=== PATIENT | male | born 1935 | race Caucasian/White ===

== ENCOUNTER 2019-04-25 20:50 | Inpatient (IN) | payer MEDICARE, BC ==
[2019-04-25] MEDS ORDERED: Atropine Sulfate 1 mg/10 ml Syringe ONE (20:57)
[2019-04-25 21:26] LABS: #Eosinphils 0.1 thou/uL (0.0-0.7); #Lymphocytes 1.1 thou/uL (1.20-3.40); #Monocytes 1.1 thou/uL (0.11-0.59); #Neutrophils 6.5 thou/uL (1.40-6.50); %Basophils 0.2 % (0.0-1.0); %Eosinophils 1.6 % (0.0-10.0); %Lymphocytes 12.4 % (21.0-51.0); %Monocytes 12.4 % (0.0-10.0); %Neutrophils 73.4 % (42.0-75.0); Hemoglobin 14.4 g/dL (14.0-18.0); Mean Corpuscular HGB CONC 32.3 g/dL (32.0-36.0); Mean Corpuscular Hemoglobin 29.6 pg (27.0-31.0); Mean Corpuscular Volume 91.8 fL (78.0-98.0); Mean Platelet Volume 7.8 fL (7.4-10.4); Platelet Count 239 thou/uL (130-400); RBC Distribution Width 17.8 % (11.5-14.5); Red Blood Cell (RBC) Count 4.86 mill/uL (4.70-6.10); White Blood Cell (WBC) Count 8.9 thou/uL (4.8-10.8)
[2019-04-25 21:31] LABS: INR-International Normal Ratio 1.1; PTT 28.3 SEC (22.9-36.1); Prothrombin Time 13.8 SEC (12.0-14.7)
[2019-04-25 21:52] LABS: ALT (SGPT) 50 U/L (8-55); AST (SGOT) 36 U/L (5-34); Albumin 4.1 g/dL (3.4-4.8); Alkaline Phosphatase 70 U/L (40-150); Anion Gap 11 mmol/L (10-20); BUN (Urea Nitrogen) 81 mg/dL (8.4-25.7); Bilirubin, Total 0.9 mg/dL (0.2-1.2); Calc. Creatinine Clearance 0 mL/min (70-130); Calcium 9.4 mg/dL (7.8-10.44); Carbon Dioxide 34 mmol/L (23-31); Chloride 89 mmol/L (98-107); Estimated GFR-MDRD 16; Globulin 3.4 g/dL (2.4-3.5); Glucose 144 mg/dL (83-110); Protein, Total 7.5 g/dL (5.8-8.1); Sodium 130 mmol/L (136-145)
--- NOTE | 2019-04-25 21:52 | RAD ---
CHEST 1 VIEW: Date: 04/25/19 HISTORY: Chest pain, bradycardia. FINDINGS: Monitor leads overlie the chest. Heart size is within normal limits. Postop midline sternotomy change s. No confluent pneumonia, overt edema, or pleural effusion. IMPRESSION: Postop midline sternotomy. Borderline heart size. No significant acute intrathoracic disease. POS: RRE
[2019-04-25] MEDS ORDERED: Enoxaparin Sodium 100 MG/ML SYRINGE ONE (22:07)
[2019-04-25 22:11] LABS: CKMB 2.4 ng/mL (0-6.6)
[2019-04-25] MEDS ORDERED: Enoxaparin Sodium 100 MG/ML SYRINGE SC SCH (22:15)
[2019-04-25] MEDS ORDERED: Ondansetron PF 4 MG/2 ML Vial IVP PRN (23:15)
[2019-04-25] MEDS ORDERED: Ondansetron ODT 4 MG TAB PO PRN (23:15)
[2019-04-26 01:00] LABS: Troponin I 0.074 ng/mL (< 0.028)
[2019-04-26] MEDS ORDERED: Dextrose 50% Abboject 50 ML SYRINGE SLOW IVP PRN (02:30)
[2019-04-26] MEDS ORDERED: Dextrose 5% in Water 1,000 ML IV PRN (02:30)
--- NOTE | 2019-04-26 03:14 | HP ---
PRIMARY CARE DOCTOR: Amanuel Early MD. CODE STATUS: DNR/DNI. TIME OF EVALUATION: 10:47 p.m. CHIEF COMPLAINT: Bradycardia. HISTORY OF PRESENT ILLNESS: This is an 84-year-old male patient with past medical history of CHF, type 2 diabetes, kidney failure, coronary artery disease, status post CABG, came to the hospital after having an episode of very low heart rate with heart rate in the 30s. He has been examined today by a home health staff. The patient has been in the ER, received some atropine. He has been asymptomatic, but the heart rate has been down in the 30s multiple times. Dr. Plasencia was called who will see the patient in the morning. The patient has no significant symptoms. Of note, the patient was on carvedilol and also amiodarone, can be a combination of the two also, he had not been taking these medications since Wednesday due to he did not have refills. REVIEW OF SYSTEMS: CONSTITUTIONAL: No fever, chills, or generalized weakness. RESPIRATORY: No cough, sputum production, or shortness of breath. CARDIOVASCULAR: The patient had no chest pain, but he has bradycardia. GASTROINTESTINAL: No nausea, vomiting, diarrhea, or abdominal pain. SPECIAL EQUIPMENT TECHNICIAN: No dizziness, headache, or feeling lightheaded. GENITOURINARY: No burning on urination. EXTREMITIES: No leg swelling. All other systems were reviewed and negative except for the findings mentioned above. PAST MEDICAL HISTORY: As mentioned in the HPI. PAST SURGICAL HISTORY: The patient has a history of CABG. PSYCHIATRIC HISTORY: No previous psych history. SOCIAL HISTORY: No alcohol. No drugs. No smoking history. FAMILY HISTORY: Reviewed, noncontributory to current presentation. KNOWN ALLERGIES: No known drug allergies. REPORTED MEDICATIONS: 1. Furosemide. 2. Aspirin. 3. Metolazone. 4. Spironolactone. 5. Ranitidine. 6. Amiodarone. 7. Coenzyme Q10. 8. Atorvastatin. 9. Carvedilol. 10. Glimepiride. PHYSICAL EXAMINATION: VITAL SIGNS: On presentation, blood pressure 157/60 with heart rate 41, respiratory rate was 16, temperature 97.4, pain 2/10, oxygen saturation was 99% on room air. GENERAL APPEARANCE: The patient is alert, oriented, not in acute distress. HEENT: Eyes; normal conjunctivae. Moist oral mucosa. Anicteric. No JVD. RESPIRATORY: Bilateral air entry. No rales. No wheezes. Symmetric expansion. CARDIOVASCULAR: The patient has bradycardia with irregular rhythm. No murmurs. No gallop. No edema. ABDOMEN: Soft. Normal bowel sounds. MUSCULOSKELETAL: Baseline range of motion and strength. SKIN: Warm, intact. No pallor. No rash. No redness. Peripheral pulses are present. Capillary refill seems to intact. NEUROLOGIC: No evidence of any new focal weakness. Cranial nerves seem to be intact. PSYCH: The patient is in good mood. No anxiety. Optimal judgment. DIAGNOSTIC DATA: EKG was reviewed. The patient has wide QRS rhythm, LBBB, ventricular rate of 44, QRS 184, QT corrected 453. Chest x-ray was reviewed. The patient has postop midline sternotomy, borderline heart size. No significant acute intrathoracic disease. LABORATORY DATA: Reviewed. The patient has white count 8.9, hemoglobin 14.4, MCV 91.8, platelet count 239. Coagulation; PT 13.8, INR 1.1, PTT 28.3. Chemistry; sodium 130, potassium 4.0, chloride 89, carbon dioxide 34, anion gap 11, BUN 81, creatinine 3.58, GFR 16, glucose 144, calcium 9.4, total bilirubin 0.9. LFTs were negative. Troponin initial was 0.060, second one 0.074. ASSESSMENT AND PLAN: The patient will be placed in the hospital with following medical problems: 1. Bradycardia, with no significant symptoms. Heart rate has dropped in the 30s multiple times. Dr. Plasencia is following, he has been called and he will see the patient in the morning, we will follow recommendations. We will hold amiodarone and beta-blockers for now until further recommendations from Cardiology. Reconcile rest of home medications. 2. Hyponatremia, sodium 130, this is mild, no need for any acute intervention. We will monitor, we will treat accordingly. 3. Metabolic alkalosis with CO2 of 34. The patient might be on the dry side. He was in 2 diuretics furosemide and metolazone, we will reconcile home medications, we will adjust as needed. 4. The patient has a history of chronic kidney disease. Today, creatinine is 3.58, we do not know if this is worsened from baseline. We will have the records to compare. We will monitor kidney function in the morning. The patient seems to be on the right side. 5. Also has underlying congestive heart failure, so we need to find the right balance fluids, so we prevent patient going to congestive heart failure exacerbation complications. 6. Uncontrolled diabetes. The patient will be placed in the hospital on sliding scale. We will reconcile home medications. 7. Positive troponins. The first one is 0.060, the second one is 0.074. This is mild, could be secondary to [id number] myocardial infarction type 2 due to arrhythmias, we will trend troponins, we will treat accordingly. Cardiology has been consulted. 8. Deep venous thrombosis prophylaxis. 9. We will request records from [facility], so we avoid doing unnecessary tests. Job ID: [id number]
[2019-04-26] MEDS: Acetaminophen 325 MG TAB PO PRN ×2 (03:44→14:31)
[2019-04-26 04:56] LABS: #Eosinphils 0.2 thou/uL (0.0-0.7); #Lymphocytes 1.5 thou/uL (1.20-3.40); #Monocytes 1.2 thou/uL (0.11-0.59); #Neutrophils 6.9 thou/uL (1.40-6.50); %Basophils 0.3 % (0.0-1.0); %Eosinophils 1.5 % (0.0-10.0); %Monocytes 12.6 % (0.0-10.0); %Neutrophils 70.6 % (42.0-75.0); Hemoglobin 14.4 g/dL (14.0-18.0); Mean Corpuscular HGB CONC 32.5 g/dL (32.0-36.0); Mean Corpuscular Hemoglobin 29.7 pg (27.0-31.0); Mean Corpuscular Volume 91.4 fL (78.0-98.0); Mean Platelet Volume 7.6 fL (7.4-10.4); Platelet Count 241 thou/uL (130-400); RBC Distribution Width 17.7 % (11.5-14.5); Red Blood Cell (RBC) Count 4.86 mill/uL (4.70-6.10); White Blood Cell (WBC) Count 9.8 thou/uL (4.8-10.8)
[2019-04-26 05:17] LABS: Anion Gap 14 mmol/L (10-20); BUN (Urea Nitrogen) 75 mg/dL (8.4-25.7); Calc. Creatinine Clearance 20 mL/min (70-130); Calcium 9.3 mg/dL (7.8-10.44); Carbon Dioxide 31 mmol/L (23-31); Chloride 90 mmol/L (98-107); Estimated GFR-MDRD 18; Glucose 73 mg/dL (83-110); Potassium 3.8 mmol/L (3.5-5.1); Sodium 131 mmol/L (136-145)
[2019-04-26] MEDS ORDERED: Enoxaparin Sodium 30 MG/0.3 ML SYRINGE SC SCH (09:00)
[2019-04-26] MEDS: Spironolactone 25 MG TAB PO SCH (10:44)
[2019-04-26] MEDS: Ubidecarenone 50 MG CAP PO SCH (10:44)
[2019-04-26] MEDS: Atorvastatin Calcium 40 MG TAB PO SCH (10:44)
[2019-04-26] MEDS: Famotidine 20 MG TAB PO SCH (10:44)
[2019-04-26] MEDS: Metolazone 2.5 MG TAB PO SCH (10:45)
[2019-04-26] MEDS: Aspirin 81 mg Enteric Coated Tablet PO SCH (10:45)
[2019-04-26] MEDS: Furosemide 40 MG TAB PO SCH (10:46)
--- NOTE | 2019-04-26 14:13 | CON ---
DATE OF CONSULTATION: 04/26/2019 REASON FOR CONSULTATION: Bradycardia. HISTORY OF PRESENT ILLNESS: Mr. Colbert is a pleasant 84-year-old white gentleman, who comes to the hospital after he was found to have heart rates in the 30s. He was at home being evaluated by home health and he was found to have multiple episodes of heart rate down to the 30s. He was asked to go to the ER, where he was seen and evaluated and was found to have heart rate in the 30s to 40s, given some atropine and admitted for further evaluation. Mr. Colbert is completely asymptomatic. Denies any chest pain, tightness, or pressure. No shortness of breath. No lightheadedness. No syncope or presyncope. He has been on amiodarone and carvedilol. He has a history of atrial fibrillation in the past, followed by Dr. Briseno at [facility]. No other issues for now. He had his amiodarone and carvedilol stopped last night and his heart rate has remained in the 40s. PAST MEDICAL HISTORY: 1. 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 2. Type 2 diabetes. 3. Renal insufficiency. 4. Coronary artery disease, status post CABG. 5. Possible history of atrial fibrillation, unknown at this time, but the family admits to having this before. PAST SURGICAL HISTORY: CABG. SOCIAL HISTORY: No alcohol, tobacco, or drugs. FAMILY HISTORY: Noncontributory. OUTPATIENT MEDICATIONS: Include: 1. Aldactone 50 mg a day. 2. . 3. Coreg 3.125 b.i.d. 4. Amiodarone 400 mg a day. 5. CoQ10. 6. Ranitidine. 7. Atorvastatin 40 mg a day. 8. Metolazone 2.5 mg a day. 9. Furosemide 40 mg a day. 10. Aspirin 81 a day. ALLERGIES: NO KNOWN DRUG ALLERGIES. REVIEW OF SYSTEMS: Recent falls, otherwise negative unless stated in history of present illness. PHYSICAL EXAMINATION: VITAL SIGNS: Temperature 96.6, pulse 40, respiratory rate 16, saturating 99% on room air, and blood pressure 139/61. GENERAL: Awake, alert, and oriented x3. No distress. HEENT: Normocephalic and atraumatic. NECK: Supple. LUNGS: Clear. CARDIOVASCULAR: S1 and S2. No S3 or S4. No murmurs. ABDOMEN: Soft. Positive bowel sounds. EXTREMITIES: No edema. SKIN: Warm and dry. LABORATORY DATA: Laboratory work was reviewed. CBC is unremarkable. Coags are normal. Chemistries unremarkable except for a BUN of 75, creatinine 3.31, GFR of 18. Troponin is indeterminate range of 0.06, 0.07, and 0.09. Sodium was 131. EKG was reviewed, sinus bradycardia. ASSESSMENT: 1. Sinus bradycardia. Asymptomatic. 2. History of atrial fibrillation. 3. History of coronary artery disease. 4. History of congestive heart failure, unclear which type. 5. Chronic kidney disease, currently at stage 4, unknown chronicity. PLAN: 1. Continue to hold amiodarone and Coreg. 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 Currently, he is quite stable off the amiodarone and carvedilol. 2. We will ask for records from [facility] as he was recently admitted there. 3. We will get an echocardiogram to assess LV function, valvular structures. 4. Further recommendations per further evaluation with echo and review of records. Thank you for letting us to participate in the care of your patient. We will follow. Job ID: [id number]
--- NOTE | 2019-04-26 17:12 | CON ---
DATE OF CONSULTATION: 04/26/2019 SERVICE: Pulmonary Medicine. REASON FOR CONSULTATION: [facility] patient. HISTORY OF PRESENT ILLNESS: The patient is an 84-year-old white male. He was in his usual state of health when home health came to check on him. He was discovered to be bradycardic. He was completely asymptomatic and denied any chest discomfort, shortness of breath, palpitations, nausea, or vomiting. He does not have any known history of bradyarrhythmias. He was told to come to the Emergency Department. Because there were no telemetry beds available, he was tucked in the [facility]. He denies any current fevers, chills, cough, or sputum production. He is on beta blockers in the outpatient setting. These include amiodarone and Coreg. Cardiology consultation has been placed. Currently, the patient remains without symptoms. PAST MEDICAL HISTORY: 1. Type 2 diabetes mellitus. 2. Dyslipidemia. 3. Hypertension. 4. Chronic systolic and diastolic heart failure. 5. Gastroesophageal reflux disease. 6. Chronic kidney disease, stage IV. PAST SURGICAL HISTORY: Coronary artery bypass graft surgery. SOCIAL HISTORY: Negative for alcohol, tobacco, or illicit drug use. He has no exposure to chemicals, dust, asbestos, or tuberculosis. He has a [id number] history of smoking, but quit over 10 years ago. FAMILY HISTORY: Noncontributory. ALLERGIES: NO KNOWN DRUG ALLERGIES. MEDICATIONS: List of the patient's inpatient medications was reviewed. No specific updates were made at this time. REVIEW OF SYSTEMS: General; head, ears, eyes, nose, throat; cardiovascular; respiratory; GI; ; musculoskeletal; neurologic; and skin are negative except as mentioned is the HPI. PHYSICAL EXAMINATION: VITAL SIGNS: Afebrile, pulse 40, blood pressure 139/61, respirations 16, and saturation 99% on room air. GENERAL: The patient is awake and alert, in no apparent distress. LUNGS: Decent air entry. There is no prolonged expiratory phase or wheezing present. HEART: Normal rate and regular. ABDOMEN: Soft, nontender, and nondistended. Bowel sounds are positive. MUSCULOSKELETAL: No cyanosis or clubbing. There is trace to 1+ pitting in the bilateral lower extremities. NEUROLOGIC: Grossly nonfocal. LABORATORY DATA: CBC is unremarkable. INR 1.1. Creatinine 3.31 and gently downtrending, BUN 75 also improving. Basic metabolic profile is otherwise unremarkable. Troponin is gently up trending to 0.09. Liver function studies were previously unremarkable except for marginally elevated AST at 36. IMAGING STUDIES: Chest x-ray demonstrates postop midline sternotomy. No acute cardiopulmonary abnormality is present. ASSESSMENT: 1. Chronic kidney disease, stage IV. 2. Bradycardia, new onset, without any symptoms. 3. Heart failure, type not specified. DISCUSSION AND PLAN: The patient is stable for transition out of the ICU to the telemetry unit. We will continue to monitor closely while we await records from [facility]. When the patient lands on the floor, he will have no further requirements for inpatient Pulmonary or Critical Care opinion, and I will sign off. Please call with additional questions or concerns through time. 70 minutes have been devoted to this patient in various activities. I personally reviewed all imaging studies and laboratory data noted within this document. For fifty percent of this time, I was interacting with the patient at the bedside or coordinating care with the care team. For the remainder of the time I was immediately available to the patient in the hospital unit. Job ID: [id number] [email or web address]
--- NOTE | 2019-04-26 19:11 | PRG ---
DATE OF SERVICE: 04/26/2019 SUBJECTIVE: The patient denies any new complaints at this time. He continues to have generalized weakness. No syncope reported. He denies any chest pain, palpitations, or shortness of breath. No fever or chills reported. CURRENT MEDICATIONS: Current medications were reviewed. The patient is currently on: 1. Aspirin. 2. Lipitor. 3. Pepcid. 4. Lasix. 5. Metolazone. 6. Aldactone. 7. Coenzyme Q10. REVIEW OF SYSTEMS: The patient denies any fever, chills, or focal neurologic deficits. All other review of systems was reviewed and were found negative. Telemetry monitoring, by my review, showed sinus bradycardia. OBJECTIVE: VITAL SIGNS: Temperature 97.7, respirations of 15, pulse rate of 40 , blood pressure of 153/65, O2 saturation 98% on room air. Weight of 190 pounds. GENERAL: An 84-year-old male with generalized weakness. Denies any pain. LUNGS: Clear to auscultation bilaterally. No wheezing, rales, or rhonchi. Lungs were symmetrical. No accessory muscle use. HEART: S1 and S2 present. Bradycardic. No heaves or pulsation. 2/6 systolic murmur over the mitral area. ABDOMEN: Soft and nontender. Bowel sounds present. EXTREMITIES: No edema or calf tenderness. NEUROLOGIC: Grossly nonfocal. Moves all 4 extremities. PSYCHIATRIC: Alert, awake, and oriented x3. Normal affect. LABORATORY FINDINGS: WBC 9.8, hemoglobin 14.4, hematocrit 44.4, and platelets 241. PT/INR, PTT within normal range. Chemistry showed sodium 131, potassium 3.8, chloride 90, bicarb 31, BUN 75, and creatinine 3.31. Troponin 0.060. Chest x-ray, by my review, was negative for infiltrate. IMPRESSION: 1. Generalized weakness. 2. Sinus bradycardia, asymptomatic. 3. Hyponatremia. 4. History of congestive heart failure, ejection fraction unknown. 5. Diabetes mellitus type 2. 6. Elevated troponin, probably secondary to type 2 myocardial infarction due to demand ischemia. 7. Coronary artery disease, status post coronary artery bypass grafting. 8. Chronic kidney disease stage 4 vs ELPIDIO 9. History of atrial fibrillation. 10. Sacrococcygeal area Pressure Ulcer. Stage II (present on admission) PLAN: Carvedilol and amiodarone are currently on hold due to bradycardia. We will continue telemetry monitoring. We will continue other home medications as discussed above. Recheck labs in a.m. Continue sliding scale. We will await records from [facility]. Code status was clarified. The patient is requesting no intubation. He still wants CPR and shocks if needed. Code status will be changed in the computer. Plan of care was discussed with the patient and the family in detail, they stated understanding. Job ID: [id number] [facility]
[2019-04-26] MEDS ORDERED: Prevnar 13-Val Conj/PF 0.5 ML SYRINGE IM ONE (21:00)
[2019-04-26] MEDS: Senokot S 8.6-50 MG TAB PO SCH (21:09)
[2019-04-27] MEDS: Acetaminophen 325 MG TAB PO PRN ×2 (01:54→19:59)
[2019-04-27 04:59] LABS: Anion Gap 13 mmol/L (10-20); BUN (Urea Nitrogen) 69 mg/dL (8.4-25.7); BUN/Creatinine Ratio 22.26; Calc. Creatinine Clearance 22 mL/min (70-130); Calcium 9.3 mg/dL (7.8-10.44); Carbon Dioxide 30 mmol/L (23-31); Chloride 88 mmol/L (98-107); Estimated GFR-MDRD 19; Glucose 168 mg/dL (83-110); Phosphorus 4.1 mg/dL (2.3-4.7); Potassium 3.7 mmol/L (3.5-5.1); Sodium 127 mmol/L (136-145)
[2019-04-27] MEDS: Metolazone 2.5 MG TAB PO SCH (10:20)
[2019-04-27] MEDS: Ubidecarenone 50 MG CAP PO SCH (10:20)
[2019-04-27] MEDS: Aspirin 81 mg Enteric Coated Tablet PO SCH (10:20)
[2019-04-27] MEDS: Furosemide 40 MG TAB PO SCH (10:20)
[2019-04-27] MEDS: Spironolactone 25 MG TAB PO SCH (10:20)
[2019-04-27] MEDS: Polyethylene Glycol 3350 17 GM Packet PO SCH (10:21)
[2019-04-27] MEDS: Famotidine 20 MG TAB PO SCH (10:21)
[2019-04-27] MEDS: Senokot S 8.6-50 MG TAB PO SCH ×2 (10:21→19:59)
[2019-04-27] MEDS: Atorvastatin Calcium 40 MG TAB PO SCH ×2 (11:46→19:59)
--- NOTE | 2019-04-27 12:45 | PRG ---
DATE OF SERVICE: 04/27/2019 SUBJECTIVE: Mr. Colbert is evaluated today. He has no new complaints. OBJECTIVE: VITAL SIGNS: He is afebrile. Heart rate in the 40s, blood pressure 129/66, respiratory rate is 19. LUNGS: Clear. HEART: Regular rhythm. ABDOMEN: Soft and nontender. EXTREMITIES: Without edema. NEURO: Nonfocal. LABORATORY DATA: White count is 9.8 yesterday. There is no CBC today. Sodium today is 127, it was 131 yesterday. Potassium 3.7, chloride 88, BUN 69, and creatinine 3.1. Intake and output -820. IMPRESSION: 1. Bradycardia. 2. Chronic kidney disease with acute decompensation that has improved in spite of negative fluid balance. 3. Mild hyponatremia. 4. Diabetes. 5. Relative bradycardia. PLAN: We will continue supportive care. He needs to remain in a monitored bed. There are no telemetry beds at this time. We will continue to have his amiodarone and Coreg on hold. He has a history of atrial arrhythmias, but he has not had any since he has been admitted. It is noted that he may require pacemaker if he does. An echocardiogram is pending. We will continue to follow the other physicians. Job ID: [id number] [facility]
--- NOTE | 2019-04-27 16:24 | PQF ---
CLINICAL DOCUMENTATION IMPROVEMENT CLARIFICATION FORM: ICD-10 Updated PLEASE DO AN ADDENDUM TO THE PROGRESS NOTE WITH ANY DOCUMENTATION UPDATES OR ADDITIONS AND CARRY THROUGH TO DC SUMMARY. THANK YOU. DATE: 04/27/2019 ATTN: Dr. Culver Please exercise your independent, professional judgment in responding to the clarification form. Clinical indicators are provided on the bottom of this form for your review Please check appropriate box(s): [ ] I (concur) with the Wound Care findings as stated below. [ ] Pressure Ulcer: (Stage I: Erythema; Stage II: Partial thickness; Stage III : Full thickness; Stage IV: Necrosis to muscle/bone) [ ] Location: POA: [ ] Yes [ ] No[ ] Unable to determine Stage (I to IV): __(Left__Right__Bilateral__N/A__) [ ] Location: POA: [ ] Yes [ ] No[ ] Unable to determine Stage (I to IV): __(Left__Right__Bilateral__N/A_) [ ] No pressure ulcer diagnosis [ ] Deep tissue injury [ ] Other diagnosis [ ] Unable to determine In addition, please specify: Present on Admission (POA): [ ] Yes [ ] No [ ] Unable to determine For continuity of documentation, please document condition throughout progress notes and discharge summary. Thank You. CLINICAL INDICATORS - SIGNS / SYMPTOMS / LABS 04/26 WOUND CARE ASSESSMENT: Sacrococcygeal area Pressure Ulcer. Stage II RISKS: H&P 04/25: 84 yo, with PMH CHF, type 2 diabetes. History of CKD. TREATMENT: 04/26 ORDER FOR WOUND CARE EVAL. 04/26 WC ASSESSMENT: Follow Nursing Wound Care Protocol keep area clean and dry, apply barrier cream , cover with Pre-ulcer skin changes limited to persistent focal edema (Stage 1) Abrasion, blister, partial thickness skin loss involving epidermis and/or dermis (Stage 2) Full thickness skin loss involving damage or necrosis of SQ tissue. (Stage 3) Necrosis of soft tissue through to underlying muscle, tendon, or bone. (Stage 4) Purple or maroon discolored skin or blood filled blister Thank you, Angelica (This form is maintained as a part of the permanent medical record) 2014 [employer]. All Rights Reserved Angelica Roman RN, BSN [email or web address] Office: [phone] [facility]
[2019-04-27] MEDS: HumaLOG 300 UNITS/3 ML VIAL SC PRN (17:01)
[2019-04-27 18:12] LABS: Bilirubin Negative (Negative); Blood, Urine Negative (Negative); Clarity CLEAR (Clear); Glucose, Urine (Dipstick) 100 mg/dL (Negative); Leukocyte Negative (Negative); Nitrite Negative (Negative); Protein, Urine (Dipstick) Trace mg/dL (Neg-Trace); Specific Gravity, Urine 1.013 (1.002-1.036)
--- NOTE | 2019-04-27 18:40 | PDOC.CTH ---
Cardiology Progress Note - Subjective No new issues. - Objective Vital Signs Temp Pulse Pulse BP BP Pulse Ox Pulse Ox 04/27/19 15:20 97.9 F 04/27/19 11:15 97.7 F 04/27/19 10:43 44 L 45 L 122/65 129/66 100 04/27/19 10:34 44 L 45 L 122/65 129/66 100 04/27/19 09:18 100 04/27/19 07:44 97.4 F L Pulse Ox 04/27/19 15:20 04/27/19 11:15 04/27/19 10:43 99 04/27/19 10:34 98 04/27/19 09:18 04/27/19 07:44 Admit Weight 190 lb 11.2 oz Weight 190 lb 11.2 oz 04/26/19 04/27/19 04/28/19 06:59 06:59 06:59 Intake Total 1680 960 Output Total 2500 975 Balance -820 -15 - Physical Examination General/Neuro: alert & oriented x3, NAD Neck: no JVD present Lungs: CTA, unlabored respirations Heart: RRR Abdomen: NT/ND Extremities: + edema B (1+) - Telemetry Telemetry Rhythm: S stacey. - Labs Result Diagrams: 04/26/19 04:50 04/27/19 04:20 Troponin/CKMB CK-MB (CK-2) 2.4 ng/mL (0-6.6) 04/25/19 21:18 Troponin I 0.090 ng/mL (< 0.028) H 04/26/19 04:50 - Assessment/Plan 1. Sinus bradycardia 2. Hyponatremia 3. Paroxysmal afib 4. 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 - He is asymptomatic and has chronotropoic competence as when he stands up his HR goes up to the upper 40's to low 50's. - Continue to monitor, may transfer to telemetry. - May need a PPM in the near future.
--- NOTE | 2019-04-27 19:18 | PDOC.PN ---
- Subjective Encounter Start Date: 04/27/19 Encounter Start Time: 08:30 Patient seen and examined for gen weakness/bradycardia. Feels the same. No CP/ SOB. No new complaints. No overnight events - Objective Resuscitation Status - Order Detail: 04/26/19 17:23 Resuscitation Status Routine Resuscitation Status: PRTL: Cardiac only Discussed with: Confirmed with patient/family Additional comments: No intubation MAR Reviewed: Yes Vital Signs & Weight: Vital Signs (12 hours) Temp Pulse Pulse BP BP Pulse Ox Pulse Ox 04/27/19 15:20 97.9 F 04/27/19 11:15 97.7 F 04/27/19 10:43 44 L 45 L 122/65 129/66 100 04/27/19 10:34 44 L 45 L 122/65 129/66 100 04/27/19 09:18 100 04/27/19 07:44 97.4 F L Pulse Ox 04/27/19 15:20 04/27/19 11:15 04/27/19 10:43 99 04/27/19 10:34 98 04/27/19 09:18 04/27/19 07:44 Weight Admit Weight 190 lb 11.2 oz Weight 190 lb 11.2 oz Most Recent Monitor Data Heart Rate from ECG 49 NIBP 103/55 NIBP BP-Mean 71 Respiration from ECG 19 SpO2 99 I&O: 04/26/19 04/27/19 04/28/19 06:59 06:59 06:59 Intake Total 1680 960 Output Total 2500 975 Balance -820 -15 Result Diagrams: 04/26/19 04:50 04/27/19 04:20 Additional Labs: Accuchecks 04/27/19 04/27/19 04/27/19 16:35 10:31 05:44 POC Glucose 242 H 186 H 148 H 04/26/19 20:20 POC Glucose 218 H EKG Reviewed by me: Yes (Tele SB) Phys Exam - Physical Examination Constitutional: NAD Respiratory: no wheezing, no rhonchi Cardiovascular: no rub bradycardic Gastrointestinal: soft, non-tender, positive bowel sounds Musculoskeletal: no edema Neurological: moves all 4 limbs Dx/Plan - Plan DVT proph w/SCDs IMPRESSION: 1. Generalized weakness. 2. Sinus bradycardia, asymptomatic. 3. Hyponatremia. 4. History of congestive heart failure, ejection fraction unknown. 5. Diabetes mellitus type 2. 6. Elevated troponin, probably secondary to type 2 myocardial infarction due to demand ischemia. 7. Coronary artery disease, status post coronary artery bypass grafting. 8. Chronic kidney disease stage 4 vs ELPIDIO 9. History of atrial fibrillation. 10. Sacrococcygeal area Pressure Ulcer. Stage II (present on admission) PLAN: Coreg and Amiodarone on hold Cont other meds including diuretics as below AM labs Await records from [facility] Cont sliding scale PT/OT Cont wound care Review of Systems - Medications/Allergies Allergies/Adverse Reactions: Allergies Allergy/AdvReac Type Severity Reaction Status Date / Time No Known Allergies Allergy Verified 04/26/19 01:57 Medications: Current Medications Acetaminophen (Tylenol) 650 mg PO Q4H PRN PRN Reason: Headache/Fever/Mild Pain (1-3) Last Admin: 04/27/19 01:54 Dose: 650 mg Aspirin (Ecotrin) 81 mg PO DAILY [facility] Last Admin: 04/27/19 10:20 Dose: 81 mg Atorvastatin Calcium (Lipitor) 40 mg PO [facility] Coenzyme Q10 (Coenzyme Q10) 100 mg PO DAILY [facility] Last Admin: 04/27/19 10:20 Dose: 100 mg Dextrose/Water (Dextrose 50%) 25 gm SLOW IVP PRN PRN PRN Reason: Hypoglycemia Famotidine (Pepcid) 20 mg PO DAILY [facility] Last Admin: 04/27/19 10:21 Dose: 20 mg Furosemide (Lasix) 40 mg PO DAILY [facility] Last Admin: 04/27/19 10:20 Dose: 40 mg Glucagon (Glucagon) 1 mg IM PRN PRN PRN Reason: Hypoglycemia Dextrose/Water (D5w) 1,000 mls @ 0 mls/hr IV .Q0M PRN PRN Reason: Hypoglycemia Insulin Human Lispro (Humalog) 0 units SC .MILD SLIDING SCALE PRN PRN Reason: Mild Correctional Scale Last Admin: 04/27/19 17:01 Dose: 3 unit Metolazone (Zaroxolyn) 2.5 mg PO DAILY [facility] Last Admin: 04/27/19 10:20 Dose: 2.5 mg Ondansetron HCl (Zofran Odt) 4 mg PO Q6H PRN PRN Reason: Nausea/Vomiting Ondansetron HCl (Zofran) 4 mg IVP Q6H PRN PRN Reason: Nausea/Vomiting Polyethylene Glycol (Miralax) 17 gm PO DAILY [facility] Last Admin: 04/27/19 10:21 Dose: 17 gm Senna/Docusate Sodium (Senokot S) 1 tab PO BID [facility] Last Admin: 04/27/19 10:21 Dose: 1 tab Spironolactone (Aldactone) 50 mg PO QAM-WM [facility] Last Admin: 04/27/19 10:20 Dose: 50 mg
[2019-04-28] MEDS: HumaLOG 300 UNITS/3 ML VIAL SC PRN ×2 (06:41→17:00)
[2019-04-28 08:45] LABS: #Eosinphils 0.1 thou/uL (0.0-0.7); #Lymphocytes 1.4 thou/uL (1.20-3.40); #Monocytes 1.3 thou/uL (0.11-0.59); #Neutrophils 8.8 thou/uL (1.40-6.50); %Basophils 0.3 % (0.0-1.0); %Eosinophils 0.8 % (0.0-10.0); %Lymphocytes 12.4 % (21.0-51.0); %Monocytes 10.7 % (0.0-10.0); %Neutrophils 75.8 % (42.0-75.0); Mean Corpuscular HGB CONC 34.4 g/dL (32.0-36.0); Mean Corpuscular Hemoglobin 31.1 pg (27.0-31.0); Mean Corpuscular Volume 90.5 fL (78.0-98.0); Mean Platelet Volume 7.8 fL (7.4-10.4); Platelet Count 245 thou/uL (130-400); RBC Distribution Width 17.7 % (11.5-14.5); Red Blood Cell (RBC) Count 5.13 mill/uL (4.70-6.10); White Blood Cell (WBC) Count 11.6 thou/uL (4.8-10.8)
[2019-04-28] MEDS: Famotidine 20 MG TAB PO SCH (08:57)
[2019-04-28] MEDS: Metolazone 2.5 MG TAB PO SCH (08:57)
[2019-04-28] MEDS: Aspirin 81 mg Enteric Coated Tablet PO SCH (08:58)
[2019-04-28] MEDS: Ubidecarenone 50 MG CAP PO SCH (08:58)
[2019-04-28] MEDS: Polyethylene Glycol 3350 17 GM Packet PO SCH (08:58)
[2019-04-28] MEDS: Furosemide 40 MG TAB PO SCH (08:58)
[2019-04-28] MEDS: Senokot S 8.6-50 MG TAB PO SCH ×2 (08:58→20:47)
[2019-04-28] MEDS: Spironolactone 25 MG TAB PO SCH (08:58)
[2019-04-28 09:05] LABS: ALT (SGPT) 61 U/L (8-55); AST (SGOT) 41 U/L (5-34); Albumin 4.2 g/dL (3.4-4.8); Alkaline Phosphatase 75 U/L (40-150); Anion Gap 12 mmol/L (10-20); BUN (Urea Nitrogen) 75 mg/dL (8.4-25.7); Bilirubin, Total 1.2 mg/dL (0.2-1.2); Calc. Creatinine Clearance 21 mL/min (70-130); Calcium 9.9 mg/dL (7.8-10.44); Carbon Dioxide 33 mmol/L (23-31); Chloride 87 mmol/L (98-107); Estimated GFR-MDRD 19; Globulin 3.8 g/dL (2.4-3.5); Glucose 154 mg/dL (83-110); Magnesium 2.9 mg/dL (1.6-2.6); Sodium 128 mmol/L (136-145)
--- NOTE | 2019-04-28 13:12 | PDOC.CTH ---
Cardiology Progress Note - Subjective No new issues. No syncope. - Objective Vital Signs Temp Pulse Ox 04/28/19 10:26 97.0 F L 04/28/19 08:01 100 04/28/19 07:13 97.0 F L 04/28/19 03:20 97.2 F L Admit Weight 190 lb 11.2 oz Weight 188 lb 8 oz 04/27/19 04/28/19 04/29/19 06:59 06:59 06:59 Intake Total 1680 1220 Output Total 2500 1550 Balance -820 -330 - Physical Examination General/Neuro: alert & oriented x3, NAD Neck: no JVD present Lungs: CTA, unlabored respirations Heart: RRR Abdomen: NT/ND Extremities: other: (no edema.) - Telemetry Telemetry Rhythm: S stacey. - Labs Result Diagrams: 04/28/19 08:32 04/28/19 08:32 Troponin/CKMB CK-MB (CK-2) 2.4 ng/mL (0-6.6) 04/25/19 21:18 Troponin I 0.090 ng/mL (< 0.028) H 04/26/19 04:50 - Assessment/Plan 1. Sinus bradycardia 2. Hyponatremia 3. Paroxysmal afib 4. 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 - He is asymptomatic still. If his HR does not improve over the weekend he will need a PPM most likely. - Continue to monitor, transfer to telemetry.
--- NOTE | 2019-04-28 17:14 | PDOC.PN ---
- Subjective Encounter Start Date: 04/28/19 Encounter Start Time: 16:00 Patient seen and examined for Gen weakness/Bradycardia. Intermittent lighteaded. No new complaints. No overnight events - Objective Resuscitation Status - Order Detail: 04/26/19 17:23 Resuscitation Status Routine Resuscitation Status: PRTL: Cardiac only Discussed with: Confirmed with patient/family Additional comments: No intubation MAR Reviewed: Yes Vital Signs & Weight: Vital Signs (12 hours) Temp Pulse Pulse BP BP Pulse Ox 04/28/19 15:22 96.9 F L 04/28/19 11:18 52 L 50 L 169/88 H 143/72 H 04/28/19 10:26 97.0 F L 04/28/19 08:01 100 04/28/19 07:13 97.0 F L Weight Admit Weight 190 lb 11.2 oz Weight 188 lb 8 oz Most Recent Monitor Data Heart Rate from ECG 47 NIBP 124/58 NIBP BP-Mean 80 Respiration from ECG 16 SpO2 96 I&O: 04/27/19 04/28/19 04/29/19 06:59 06:59 06:59 Intake Total 1680 1220 Output Total 2500 1550 Balance -820 -330 Result Diagrams: 04/28/19 08:32 04/28/19 08:32 Additional Labs: Accuchecks 04/28/19 04/28/19 04/28/19 16:24 10:18 05:22 POC Glucose 212 H 197 H 207 H 04/27/19 20:11 POC Glucose 215 H EKG Reviewed by me: Yes (Tele SB) Phys Exam - Physical Examination Constitutional: NAD Respiratory: no wheezing, no rhonchi Cardiovascular: no rub S1S2 +, bradycardic Gastrointestinal: soft, non-tender, positive bowel sounds Musculoskeletal: no edema Neurological: non-focal, moves all 4 limbs Dx/Plan - Plan DVT proph w/SCDs IMPRESSION: 1. Generalized weakness. 2. Sinus bradycardia, ?asymptomatic. 3. Hyponatremia. 4. History of congestive heart failure, ejection fraction unknown. 5. Diabetes mellitus type 2. 6. Elevated troponin, probably secondary to type 2 myocardial infarction due to demand ischemia. 7. Coronary artery disease, status post coronary artery bypass grafting. 8. ELPIDIO on Chronic kidney disease stage 4 9. History of atrial fibrillation. 10. Sacrococcygeal area Pressure Ulcer. Stage II (present on admission) PLAN: Coreg and Amiodarone on hold Cont other meds/sliding scale Cont Diuretics AM labs PPM if persistent bradycardia Review of Systems - Review of Systems Respiratory: negative: Cough, Dry, Shortness of Breath, Hemoptysis, SOB with Excertion, Pleuritic Pain, Sputum, Wheezing Cardiovascular: negative: chest pain, palpitations, orthopnea, paroxysmal nocturnal dyspnea, edema, light headedness, other Gastrointestinal: negative: Nausea, Vomiting, Abdominal Pain, Diarrhea, Constipation, Melena, Hematochezia, Other - Medications/Allergies Allergies/Adverse Reactions: Allergies Allergy/AdvReac Type Severity Reaction Status Date / Time No Known Allergies Allergy Verified 04/26/19 01:57 Medications: Current Medications Acetaminophen (Tylenol) 650 mg PO Q4H PRN PRN Reason: Headache/Fever/Mild Pain (1-3) Last Admin: 04/27/19 19:59 Dose: 650 mg Aspirin (Ecotrin) 81 mg PO DAILY REPLACED BY [facility] Last Admin: 04/28/19 08:58 Dose: 81 mg Atorvastatin Calcium (Lipitor) 40 mg PO HS REPLACED BY [facility] Last Admin: 04/27/19 19:59 Dose: 40 mg Coenzyme Q10 (Coenzyme Q10) 100 mg PO DAILY REPLACED BY [facility] Last Admin: 04/28/19 08:58 Dose: 100 mg Dextrose/Water (Dextrose 50%) 25 gm SLOW IVP PRN PRN PRN Reason: Hypoglycemia Famotidine (Pepcid) 20 mg PO DAILY REPLACED BY [facility] Last Admin: 04/28/19 08:57 Dose: 20 mg Furosemide (Lasix) 40 mg PO DAILY REPLACED BY [facility] Last Admin: 04/28/19 08:58 Dose: 40 mg Glucagon (Glucagon) 1 mg IM PRN PRN PRN Reason: Hypoglycemia Dextrose/Water (D5w) 1,000 mls @ 0 mls/hr IV .Q0M PRN PRN Reason: Hypoglycemia Insulin Human Lispro (Humalog) 0 units SC .MILD SLIDING SCALE PRN PRN Reason: Mild Correctional Scale Last Admin: 04/28/19 17:00 Dose: 3 unit Metolazone (Zaroxolyn) 2.5 mg PO DAILY REPLACED BY [facility] Last Admin: 04/28/19 08:57 Dose: 2.5 mg Ondansetron HCl (Zofran Odt) 4 mg PO Q6H PRN PRN Reason: Nausea/Vomiting Ondansetron HCl (Zofran) 4 mg IVP Q6H PRN PRN Reason: Nausea/Vomiting Polyethylene Glycol (Miralax) 17 gm PO DAILY REPLACED BY [facility] Last Admin: 04/28/19 08:58 Dose: 17 gm Senna/Docusate Sodium (Senokot S) 1 tab PO BID REPLACED BY [facility] Last Admin: 04/28/19 08:58 Dose: 1 tab Spironolactone (Aldactone) 50 mg PO QAM-WM REPLACED BY [facility] Last Admin: 04/28/19 08:58 Dose: 50 mg
[2019-04-28] MEDS: Atorvastatin Calcium 40 MG TAB PO SCH (20:47)
[2019-04-29] MEDS: HumaLOG 300 UNITS/3 ML VIAL SC PRN ×4 (06:25→22:07)
[2019-04-29] MEDS: Aspirin 81 mg Enteric Coated Tablet PO SCH (08:41)
[2019-04-29] MEDS: Spironolactone 25 MG TAB PO SCH (08:41)
[2019-04-29] MEDS: Metolazone 2.5 MG TAB PO SCH (08:41)
[2019-04-29] MEDS: Polyethylene Glycol 3350 17 GM Packet PO SCH (08:41)
[2019-04-29] MEDS: Ubidecarenone 50 MG CAP PO SCH (08:41)
[2019-04-29] MEDS: Famotidine 20 MG TAB PO SCH (08:41)
[2019-04-29] MEDS: Senokot S 8.6-50 MG TAB PO SCH ×2 (08:42→20:05)
[2019-04-29] MEDS: Furosemide 40 MG TAB PO SCH (08:43)
[2019-04-29 09:10] LABS: #Eosinphils 0.2 thou/uL (0.0-0.7); #Lymphocytes 1.3 thou/uL (1.20-3.40); #Monocytes 1.2 thou/uL (0.11-0.59); #Neutrophils 7.3 thou/uL (1.40-6.50); %Basophils 0.2 % (0.0-1.0); %Eosinophils 1.7 % (0.0-10.0); %Lymphocytes 12.7 % (21.0-51.0); %Monocytes 12.2 % (0.0-10.0); %Neutrophils 73.2 % (42.0-75.0); Hemoglobin 15.2 g/dL (14.0-18.0); Mean Corpuscular HGB CONC 32.6 g/dL (32.0-36.0); Mean Corpuscular Hemoglobin 29.6 pg (27.0-31.0); Mean Corpuscular Volume 90.6 fL (78.0-98.0); Mean Platelet Volume 8.1 fL (7.4-10.4); Platelet Count 245 thou/uL (130-400); RBC Distribution Width 17.7 % (11.5-14.5); Red Blood Cell (RBC) Count 5.15 mill/uL (4.70-6.10); White Blood Cell (WBC) Count 9.9 thou/uL (4.8-10.8)
[2019-04-29 09:26] LABS: Anion Gap 17 mmol/L (10-20); BUN (Urea Nitrogen) 82 mg/dL (8.4-25.7); Calc. Creatinine Clearance 21 mL/min (70-130); Calcium 9.5 mg/dL (7.8-10.44); Carbon Dioxide 26 mmol/L (23-31); Chloride 89 mmol/L (98-107); Estimated GFR-MDRD 19; Glucose 172 mg/dL (83-110); Potassium 3.5 mmol/L (3.5-5.1); Sodium 128 mmol/L (136-145)
--- NOTE | 2019-04-29 09:52 | PDOC.PN ---
- Subjective Encounter Start Date: 04/29/19 (f/u bradycardia) Encounter Start Time: 09:49 Subjective: Pt without any complaints - denies cp/n/v/abd pain. Reports some -: intermittent dizziness - none currently at rest. RN has noted times of -: straining while voiding contribute to this - Objective Resuscitation Status - Order Detail: 04/26/19 17:23 Resuscitation Status Routine Resuscitation Status: PRTL: Cardiac only Discussed with: Confirmed with patient/family Additional comments: No intubation Vital Signs & Weight: Vital Signs (12 hours) Temp Pulse Ox 04/29/19 07:58 100 04/29/19 07:09 97.0 F L 04/29/19 03:08 97.2 F L 04/28/19 23:45 96.2 F L Weight Admit Weight 190 lb 11.2 oz Weight 188 lb 8 oz Most Recent Monitor Data Heart Rate from ECG 42 NIBP 130/55 NIBP BP-Mean 80 Respiration from ECG 14 SpO2 99 I&O: 04/28/19 04/29/19 04/30/19 06:59 06:59 06:59 Intake Total 1220 740 Output Total 1550 1375 Balance -330 -635 Result Diagrams: 04/29/19 08:51 04/29/19 08:51 Additional Labs: Accuchecks 04/29/19 04/28/19 04/28/19 05:42 20:19 16:24 POC Glucose 210 H 201 H 212 H 04/28/19 10:18 POC Glucose 197 H EKG Reviewed by me: Yes (tele - sinus 40's) Phys Exam - Physical Examination Constitutional: NAD Respiratory: no wheezing, no rales, no rhonchi, clear to auscultation bilateral Cardiovascular: RRR, no significant murmur Gastrointestinal: soft, non-tender, no distention, positive bowel sounds Neurological: non-focal, normal sensation Psychiatric: normal affect Deviation from normal: ecchymosis - large area on right arm, and smaller areas on left arm Dx/Plan (1) Bradycardia Code(s): R00.1 - BRADYCARDIA, UNSPECIFIED Status: Acute (2) Weakness Code(s): R53.1 - WEAKNESS Status: Chronic (3) Hyponatremia Code(s): E87.1 - HYPO-OSMOLALITY AND HYPONATREMIA Status: Acute (4) Congestive heart failure Code(s): I50.9 - HEART FAILURE, UNSPECIFIED Status: Chronic Qualifiers: Heart failure type: unspecified Heart failure chronicity: chronic Qualified Code(s): I50.9 - Heart failure, unspecified (5) Diabetes mellitus Code(s): E11.9 - TYPE 2 DIABETES MELLITUS WITHOUT COMPLICATIONS Status: Chronic Qualifiers: Diabetes mellitus type: type 2 Diabetes mellitus complication status: with kidney complications Chronic kidney disease stage: stage 4 (severe) (6) Elevated troponin Code(s): R74.8 - ABNORMAL LEVELS OF OTHER SERUM ENZYMES Status: Acute (7) CKD (chronic kidney disease) Code(s): N18.9 - CHRONIC KIDNEY DISEASE, UNSPECIFIED Status: Chronic Qualifiers: Chronic kidney disease stage: stage 4 (severe) Qualified Code(s): N18.4 - Chronic kidney disease, stage 4 (severe) (8) Atrial fibrillation Code(s): I48.91 - UNSPECIFIED ATRIAL FIBRILLATION Status: Chronic Qualifiers: Atrial fibrillation type: paroxysmal Qualified Code(s): I48.0 - Paroxysmal atrial fibrillation (9) Pressure ulcer Code(s): L89.90 - PRESSURE ULCER OF UNSPECIFIED SITE, UNSPECIFIED STAGE Status : Acute Qualifiers: Pressure injury location: sacral region Pressure injury stage: stage 2 Qualified Code(s): L89.152 - Pressure ulcer of sacral region, stage 2 - Plan * Appreciate Cardiology consult - amiodarone and beta-tayo held, consider PPM on Wednesday * Reviewed home meds related to renal function which is stable- continue * DM - not well controlled - increase SSI to moderate short-acting with meals and bedtime scale * hyponatremia stable - continue to monitor * mildly elevated lft's on admission - recheckin AM, will need outpatient f/u * * dvt prophy - scd's * gi prophy - not indicated * code status cardiac only * * reviewed plan of care with patient, no questions or further needs at end of eval * pt remains at high risk in current condition.
--- NOTE | 2019-04-29 11:57 | PDOC.CTH ---
Cardiology Progress Note - Subjective Pt. seen and eval. by me. No new complaints. - Objective Vital Signs Temp Pulse Ox 04/29/19 10:27 97.1 F L 04/29/19 07:58 100 04/29/19 07:09 97.0 F L 04/29/19 03:08 97.2 F L Admit Weight 190 lb 11.2 oz Weight 188 lb 8 oz 04/28/19 04/29/19 04/30/19 06:59 06:59 06:59 Intake Total 1220 740 Output Total 1550 1375 Balance -330 -635 - Physical Examination General/Neuro: alert & oriented x3 Neck: no JVD present Lungs: CTA Heart: other: (bradycardia.) Abdomen: NT/ND, soft - Telemetry Telemetry Rhythm: sinus bradycardia. LBBB. - Labs Result Diagrams: 04/29/19 08:51 04/29/19 08:51 Troponin/CKMB CK-MB (CK-2) 2.4 ng/mL (0-6.6) 04/25/19 21:18 Troponin I 0.090 ng/mL (< 0.028) H 04/26/19 04:50 - Assessment/Plan 1. Generalized weakness. 2. Sinus bradycardia, ?asymptomatic. I discussed pacemaker insertion procedure and risks with the pt, and family to include bleeding,infection, pneumo/ hemothorax, pericartdial effusion. Plan for pacemaker insertion on Wednesday if still agreeable and HR still < 60. I explained that the pacemaker may not help his weakness. 3. Hyponatremia. 4. History of congestive heart failure, ejection fraction unknown. 5. Diabetes mellitus type 2. 6. Elevated troponin, probably secondary to type 2 myocardial infarction due to demand ischemia. 7. Coronary artery disease, status post coronary artery bypass grafting. 8. ELPIDIO on Chronic kidney disease stage 4 9. History of atrial fibrillation. 10. Sacrococcygeal area Pressure Ulcer. Stage II (present on admission) 11. LBBB. he may benefit from a Bi-V pacemaker.
--- NOTE | 2019-04-29 17:00 | EKG ---
Test Reason : Blood Pressure : / mmHG Vent. Rate : 042 BPM Atrial Rate : 042 BPM P-R Int : 184 ms QRS Dur : 198 ms QT Int : 564 ms P-R-T Axes : 014 -08 182 degrees QTc Int : 470 ms Marked sinus bradycardia Left bundle branch block Abnormal ECG Confirmed by TUSHAR JACKSON DO ([id number]), supervising editor trailer LEYLA MURDOCK ([id number]) on 04/29/2019 4:59:54 PM Referred By: Confirmed By:TUSHAR JACKSON DO
--- NOTE | 2019-04-29 18:48 | PRG ---
DATE OF SERVICE: 04/29/2019 SUBJECTIVE: Maxi Colbert has no complaints. He is in no distress. OBJECTIVE: VITAL SIGNS: His heart rate is still in the 40s. He is afebrile. Blood pressure 137/56. Respiratory rate is in the teens. He denies having any dyspnea or orthopnea. LUNGS: Clear. HEART: Regular rhythm. ABDOMEN: Soft. LABORATORY DATA: White count 9.9, hemoglobin 15.2, platelets 245. Sodium 128, potassium 3.5, chloride 89, bicarb 26, BUN 82, creatinine 3.14. Creatinine was 3.58 on admission. IMPRESSION: 1. Bradycardia, currently being considered for pacemaker. 2. Mmqgh-eo-seuayst kidney disease with an improvement in renal function over the last few days. He still has marginal renal function. 3. Mild hyponatremia. 4. Diabetes. He continues to be in a monitored bed. He is transferred out of the intermediate care unit. He has been followed by Cardiology. There is no echocardiogram in the computer yet, and this is his only recent admission. We will follow the other physicians. Job ID: [id number]
[2019-04-29] MEDS: Acetaminophen 325 MG TAB PO PRN (18:52)
[2019-04-29] MEDS: Atorvastatin Calcium 40 MG TAB PO SCH (20:04)
[2019-04-30 06:18] LABS: ALT (SGPT) 91 U/L (8-55); AST (SGOT) 59 U/L (5-34); Albumin 4.1 g/dL (3.4-4.8); Alkaline Phosphatase 78 U/L (40-150); Anion Gap 15 mmol/L (10-20); BUN (Urea Nitrogen) 81 mg/dL (8.4-25.7); Bilirubin, Total 1.4 mg/dL (0.2-1.2); Calc. Creatinine Clearance 22 mL/min (70-130); Calcium 9.9 mg/dL (7.8-10.44); Carbon Dioxide 29 mmol/L (23-31); Chloride 87 mmol/L (98-107); Estimated GFR-MDRD 19; Globulin 3.7 g/dL (2.4-3.5); Glucose 195 mg/dL (83-110); Potassium 3.6 mmol/L (3.5-5.1); Protein, Total 7.8 g/dL (5.8-8.1); Sodium 127 mmol/L (136-145)
[2019-04-30] MEDS: HumaLOG 300 UNITS/3 ML VIAL SC PRN ×4 (06:36→22:05)
[2019-04-30] MEDS: Metolazone 2.5 MG TAB PO SCH (09:23)
[2019-04-30] MEDS: Ubidecarenone 50 MG CAP PO SCH (09:24)
[2019-04-30] MEDS: Spironolactone 25 MG TAB PO SCH (09:24)
[2019-04-30] MEDS: Senokot S 8.6-50 MG TAB PO SCH ×2 (09:24→20:05)
[2019-04-30] MEDS: Famotidine 20 MG TAB PO SCH (09:24)
[2019-04-30] MEDS: Aspirin 81 mg Enteric Coated Tablet PO SCH (09:24)
[2019-04-30] MEDS: Furosemide 40 MG TAB PO SCH (09:24)
[2019-04-30] MEDS: Polyethylene Glycol 3350 17 GM Packet PO SCH (09:25)
--- NOTE | 2019-04-30 10:47 | PDOC.CTH ---
Cardiology Progress Note - Subjective The pt seen and examined. No overnight events. No cardiac complaints. - Objective Vital Signs Temp Pulse Resp BP Pulse Ox 04/30/19 08:00 97.4 F L 52 L 18 156/79 H 97 04/30/19 04:00 97.9 F 52 L 12 142/75 H 98 04/30/19 00:00 97.3 F L 45 L 12 133/65 98 Admit Weight 190 lb 11.2 oz Weight 188 lb 8 oz 04/29/19 04/30/19 05/01/19 06:59 06:59 06:59 Intake Total 740 480 Output Total 1375 425 Balance -635 55 - Physical Examination General/Neuro: alert & oriented x3 Neck: no JVD present Lungs: other: (diminished at bases) Heart: RRR Abdomen: soft Extremities: other: (No edema;) - Telemetry Telemetry Rhythm: SR 40-50s with LBBB - Labs Result Diagrams: 04/29/19 08:51 04/30/19 05:21 Troponin/CKMB CK-MB (CK-2) 2.4 ng/mL (0-6.6) 04/25/19 21:18 Troponin I 0.090 ng/mL (< 0.028) H 04/26/19 04:50 - Assessment/Plan 1. Generalized weakness - slightly better today per the pt. 2. Sinus bradycardia, ?asymptomatic. The instruction of pacemaker insertion procedure and the risks was given to the pt and family yesterday. Possible Bi- V PM placement by EP on Wednesday. Keep NPO after MN on 05/01/2019. 3. Hyponatremia. 4. History of congestive heart failure, ejection fraction unknown. - on Lasix and Metolazone; not on BBlocker for now due to bradycardia. Not on MECCA/ARB due to hx of CKD. 5. Diabetes mellitus type 2. 6. Elevated troponin, probably secondary to type 2 myocardial infarction due to demand ischemia. 7. Coronary artery disease, status post coronary artery bypass grafting.- On Statin and ASA. not on BBlocker for now due to bradycardia. Not on MECCA/ARB due to hx of CKD. 8. ELPIDIO on Chronic kidney disease stage 4 9. History of atrial fibrillation. Amiodarone and BBlocker are on hold due to bradycardia. On ASA 81mg qd only due to hx of multiple falls. 10. Sacrococcygeal area Pressure Ulcer. Stage II (present on admission) 11. LBBB. he may benefit from a Bi-V pacemaker (EP consult for possible Bi-V PM placement) MAR reviewed * EP consult * NPO after MN for possible Bi-V PM placement pt. seen and eval. by me. I agree with the A/P by the [employer] SUPERINTENDENT. He is still bradycardic. No chest pain. With the bradycardia,decr. EF and BBB, he will bbe advised to undergo a bi-V pacemaker. dr. Goodman will see pt. tomorrow. Review of Systems - Review of Systems Constitutional: reports: no symptoms reported EENTM: reports: no symptoms reported Respiratory: reports: no symptoms reported Cardiac (ROS): reports: no symptoms reported ABD/GI: reports: no symptoms reported
--- NOTE | 2019-04-30 14:19 | PDOC.PN ---
- Subjective Encounter Start Date: 04/30/19 (f/u DM) Encounter Start Time: 14:18 Subjective: Pt without complaints - currently sleeping, easily awakes and answers -: questions appropriately. Denies any cp/sob/n/v - Objective Resuscitation Status - Order Detail: 04/26/19 17:23 Resuscitation Status Routine Resuscitation Status: PRTL: Cardiac only Discussed with: Confirmed with patient/family Additional comments: No intubation Vital Signs & Weight: Vital Signs (12 hours) Temp Pulse Resp BP Pulse Ox 04/30/19 11:54 97.8 F 50 L 16 129/61 97 04/30/19 08:00 97.4 F L 52 L 18 156/79 H 97 04/30/19 04:00 97.9 F 52 L 12 142/75 H 98 Weight Admit Weight 190 lb 11.2 oz Weight 188 lb 8 oz Most Recent Monitor Data Heart Rate from ECG 48 NIBP 158/71 NIBP BP-Mean 100 Respiration from ECG 16 SpO2 99 I&O: 04/29/19 04/30/19 05/01/19 06:59 06:59 06:59 Intake Total 740 480 113 Output Total 1375 425 Balance -635 55 113 Result Diagrams: 04/29/19 08:51 04/30/19 05:21 Additional Labs: Accuchecks 04/30/19 04/30/19 04/29/19 10:44 05:08 20:44 POC Glucose 309 H 187 H 209 H 04/29/19 16:17 POC Glucose 231 H EKG Reviewed by me: Yes (sinus 40-50's) Phys Exam - Physical Examination Constitutional: NAD Respiratory: no wheezing, no rales, no rhonchi, clear to auscultation bilateral Cardiovascular: RRR, no significant murmur Gastrointestinal: soft, non-tender, no distention, positive bowel sounds Musculoskeletal: no edema, pulses present Psychiatric: normal affect Dx/Plan (1) Bradycardia Code(s): R00.1 - BRADYCARDIA, UNSPECIFIED Status: Acute (2) Weakness Code(s): R53.1 - WEAKNESS Status: Chronic (3) Hyponatremia Code(s): E87.1 - HYPO-OSMOLALITY AND HYPONATREMIA Status: Acute (4) Congestive heart failure Code(s): I50.9 - HEART FAILURE, UNSPECIFIED Status: Chronic Qualifiers: Heart failure type: unspecified Heart failure chronicity: chronic Qualified Code(s): I50.9 - Heart failure, unspecified (5) Diabetes mellitus Code(s): E11.9 - TYPE 2 DIABETES MELLITUS WITHOUT COMPLICATIONS Status: Chronic Qualifiers: Diabetes mellitus type: type 2 Diabetes mellitus complication status: with kidney complications Chronic kidney disease stage: stage 4 (severe) (6) Elevated troponin Code(s): R74.8 - ABNORMAL LEVELS OF OTHER SERUM ENZYMES Status: Acute (7) CKD (chronic kidney disease) Code(s): N18.9 - CHRONIC KIDNEY DISEASE, UNSPECIFIED Status: Chronic Qualifiers: Chronic kidney disease stage: stage 4 (severe) Qualified Code(s): N18.4 - Chronic kidney disease, stage 4 (severe) (8) Atrial fibrillation Code(s): I48.91 - UNSPECIFIED ATRIAL FIBRILLATION Status: Chronic Qualifiers: Atrial fibrillation type: paroxysmal Qualified Code(s): I48.0 - Paroxysmal atrial fibrillation (9) Pressure ulcer Code(s): L89.90 - PRESSURE ULCER OF UNSPECIFIED SITE, UNSPECIFIED STAGE Status : Acute Qualifiers: Pressure injury location: sacral region Pressure injury stage: stage 2 Qualified Code(s): L89.152 - Pressure ulcer of sacral region, stage 2 - Plan * Appreciate Cardiology consult - amiodarone and beta-tayo held, * NPO after midnight for anticipated PPM tomorrow with EP * Reviewed home meds related to renal function which is stable- continue * DM - not well controlled - increase SSI to aggressive scale and continue bedtime scale * hold on resuming home amaryl as pt will be NPO after midnight * hyponatremia stable - pt appears euvolemic. Check Uosm * mildly elevated lft's on admission - stable - needs outpatient f/u with PCP * * dvt prophy - scd's * gi prophy - not indicated * code status cardiac only * * reviewed plan of care with patient, no questions or further needs at end of eval * pt remains at high risk in current condition.
[2019-04-30] MEDS: Atorvastatin Calcium 40 MG TAB PO SCH (20:04)
--- NOTE | 2019-04-30 20:28 | PDOC.EVN ---
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 He was able to answer questions, and had an earlier episode while getting up to the bedside commode. I suspect this may be related to the bradycardia and requested he is mostly in bed until pacemaker is placed tomorrow. Antiicpate that pt may benefit from skilled facility after discharge to work on strength.
[2019-05-01 05:45] LABS: ALT (SGPT) 84 U/L (8-55); AST (SGOT) 61 U/L (5-34); Alkaline Phosphatase 80 U/L (40-150); Anion Gap 21 mmol/L (10-20); BUN (Urea Nitrogen) 89 mg/dL (8.4-25.7); Bilirubin, Total 1.2 mg/dL (0.2-1.2); Calc. Creatinine Clearance 22 mL/min (70-130); Calcium 9.7 mg/dL (7.8-10.44); Carbon Dioxide 23 mmol/L (23-31); Chloride 89 mmol/L (98-107); Estimated GFR-MDRD 19; Globulin 4.1 g/dL (2.4-3.5); Glucose 155 mg/dL (83-110); Potassium 3.9 mmol/L (3.5-5.1); Protein, Total 8.1 g/dL (5.8-8.1); Sodium 129 mmol/L (136-145)
[2019-05-01] MEDS: Aspirin 81 mg Enteric Coated Tablet PO SCH (08:22)
[2019-05-01] MEDS: Famotidine 20 MG TAB PO SCH (08:22)
[2019-05-01] MEDS: Spironolactone 25 MG TAB PO SCH (08:22)
[2019-05-01] MEDS: Furosemide 40 MG TAB PO SCH (08:22)
[2019-05-01] MEDS: Ubidecarenone 50 MG CAP PO SCH (08:22)
[2019-05-01] MEDS: Metolazone 2.5 MG TAB PO SCH (08:23)
[2019-05-01] MEDS: Senokot S 8.6-50 MG TAB PO SCH ×2 (08:23→21:33)
[2019-05-01] MEDS: Polyethylene Glycol 3350 17 GM Packet PO SCH (08:23)
[2019-05-01] MEDS ORDERED: Iopamidol 370 76% 50 ML VIAL FS ONE (09:49)
--- NOTE | 2019-05-01 12:55 | PDOC.CTH ---
Cardiology Progress Note - Subjective No new issues. - Objective Vital Signs Temp Pulse Pulse Pulse Resp BP BP 05/01/19 12:00 97.4 F L 50 L 16 05/01/19 08:47 50 L 77 139/66 144/71 H 05/01/19 08:30 05/01/19 07:52 97.5 F L 49 L 18 05/01/19 04:22 97.6 F 51 L 20 BP Pulse Ox 05/01/19 12:00 166/78 H 95 05/01/19 08:47 05/01/19 08:30 97 05/01/19 07:52 150/71 H 97 05/01/19 04:22 142/67 H 99 Admit Weight 190 lb 11.2 oz Weight 188 lb 8 oz 04/30/19 05/01/19 05/02/19 06:59 06:59 06:59 Intake Total 480 639 Output Total 425 350 Balance 55 289 - Physical Examination General/Neuro: alert & oriented x3, NAD Neck: no JVD present Lungs: CTA, unlabored respirations Heart: RRR Abdomen: NT/ND Extremities: + edema B (1+) - Telemetry Telemetry Rhythm: S stacey. - Labs Result Diagrams: 04/29/19 08:51 05/01/19 04:28 Troponin/CKMB CK-MB (CK-2) 2.4 ng/mL (0-6.6) 04/25/19 21:18 Troponin I 0.090 ng/mL (< 0.028) H 04/26/19 04:50 - Assessment/Plan 1. Sinus bradycardia 2. Hyponatremia 3. Paroxysmal afib 4. 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 Severe LV dysfunction, EF at 20-25% 7. LBBB PLAN: - EP consultation appreciated. - Patient will go for a bi ventricular AICD. - Likely discharge tomorrow after BiV AICD.
--- NOTE | 2019-05-01 20:09 | PDOC.PN ---
- Subjective Encounter Start Date: 05/01/19 (f/u DM) Encounter Start Time: 20:07 Subjective: Pt s/p pacemaker insertion today - recently returned to the -: floor. He denies any pain. - Objective Resuscitation Status - Order Detail: 04/26/19 17:23 Resuscitation Status Routine Resuscitation Status: PRTL: Cardiac only Discussed with: Confirmed with patient/family Additional comments: No intubation Vital Signs & Weight: Vital Signs (12 hours) Temp Pulse Pulse Pulse Resp BP BP 05/01/19 19:27 97.5 F L 60 16 05/01/19 18:00 97.6 F 58 L 24 H 05/01/19 12:00 97.4 F L 50 L 16 05/01/19 08:47 50 L 77 139/66 144/71 H 05/01/19 08:30 BP BP Pulse Ox 05/01/19 19:27 105/68 96 05/01/19 18:00 144/72 H 95 05/01/19 12:00 166/78 H 95 05/01/19 08:47 05/01/19 08:30 97 Weight Admit Weight 190 lb 11.2 oz Weight 188 lb 8 oz Most Recent Monitor Data Heart Rate from ECG 48 NIBP 158/71 NIBP BP-Mean 100 Respiration from ECG 16 SpO2 99 I&O: 04/30/19 05/01/19 05/02/19 06:59 06:59 06:59 Intake Total 480 639 Output Total 425 350 Balance 55 289 Result Diagrams: 04/29/19 08:51 05/01/19 04:28 Additional Labs: Accuchecks 05/01/19 05/01/19 04/30/19 10:45 05:08 20:31 POC Glucose 182 H 179 H 210 H EKG Reviewed by me: Yes (prior to procedure - sinus 46-51) Phys Exam - Physical Examination Constitutional: NAD Respiratory: no wheezing, no rales, no rhonchi Cardiovascular: RRR, no significant murmur Gastrointestinal: soft, non-tender, no distention, positive bowel sounds Musculoskeletal: no edema, pulses present Deviation from normal: easily falls asleep Dx/Plan (1) Bradycardia Code(s): R00.1 - BRADYCARDIA, UNSPECIFIED Status: Acute (2) Weakness Code(s): R53.1 - WEAKNESS Status: Chronic (3) Hyponatremia Code(s): E87.1 - HYPO-OSMOLALITY AND HYPONATREMIA Status: Acute (4) Congestive heart failure Code(s): I50.9 - HEART FAILURE, UNSPECIFIED Status: Chronic Qualifiers: Heart failure type: unspecified Heart failure chronicity: chronic Qualified Code(s): I50.9 - Heart failure, unspecified (5) Diabetes mellitus Code(s): E11.9 - TYPE 2 DIABETES MELLITUS WITHOUT COMPLICATIONS Status: Chronic Qualifiers: Diabetes mellitus type: type 2 Diabetes mellitus complication status: with kidney complications Chronic kidney disease stage: stage 4 (severe) (6) Elevated troponin Code(s): R74.8 - ABNORMAL LEVELS OF OTHER SERUM ENZYMES Status: Acute (7) CKD (chronic kidney disease) Code(s): N18.9 - CHRONIC KIDNEY DISEASE, UNSPECIFIED Status: Chronic Qualifiers: Chronic kidney disease stage: stage 4 (severe) Qualified Code(s): N18.4 - Chronic kidney disease, stage 4 (severe) (8) Atrial fibrillation Code(s): I48.91 - UNSPECIFIED ATRIAL FIBRILLATION Status: Chronic Qualifiers: Atrial fibrillation type: paroxysmal Qualified Code(s): I48.0 - Paroxysmal atrial fibrillation (9) Pressure ulcer Code(s): L89.90 - PRESSURE ULCER OF UNSPECIFIED SITE, UNSPECIFIED STAGE Status : Acute Qualifiers: Pressure injury location: sacral region Pressure injury stage: stage 2 Qualified Code(s): L89.152 - Pressure ulcer of sacral region, stage 2 - Plan * * Appreciate Cardiology consult - amiodarone and beta-tayo held, * s/p PPM today with EP Cardiology * Renal function stable - continue current meds * DM - has been in a procedure much of today - hold on any changes, continue SSI * hyponatremia stable -c/w SIADH * mildly elevated lft's on admission - stable - needs outpatient f/u with PCP * * dvt prophy - scd's * gi prophy - not indicated * code status cardiac only * * pt remains at high risk in current condition. * * Pt has been in the hospital 5 days, anticipate he will benefit from SNF due to weakness/deconditioning associated with the bradycardia/hospitalization
[2019-05-01] MEDS: Atorvastatin Calcium 40 MG TAB PO SCH (21:33)
[2019-05-01] MEDS: HumaLOG 300 UNITS/3 ML VIAL SC PRN (21:34)
[2019-05-02 05:24] LABS: #Lymphocytes 1.1 thou/uL (1.20-3.40); #Monocytes 1.5 thou/uL (0.11-0.59); %Eosinophils 0.3 % (0.0-10.0); %Lymphocytes 7.4 % (21.0-51.0); %Monocytes 10.3 % (0.0-10.0); Hemoglobin 16.5 g/dL (14.0-18.0); Mean Corpuscular HGB CONC 33.2 g/dL (32.0-36.0); Mean Corpuscular Hemoglobin 30.2 pg (27.0-31.0); Mean Corpuscular Volume 91.1 fL (78.0-98.0); Mean Platelet Volume 8.3 fL (7.4-10.4); Platelet Count 263 thou/uL (130-400); RBC Distribution Width 18.1 % (11.5-14.5); Red Blood Cell (RBC) Count 5.47 mill/uL (4.70-6.10); White Blood Cell (WBC) Count 14.7 thou/uL (4.8-10.8)
[2019-05-02 05:51] LABS: Anion Gap 20 mmol/L (10-20); BUN (Urea Nitrogen) 94 mg/dL (8.4-25.7); Calc. Creatinine Clearance 20 mL/min (70-130); Carbon Dioxide 25 mmol/L (23-31); Chloride 91 mmol/L (98-107); Estimated GFR-MDRD 18; Glucose 241 mg/dL (83-110); Potassium 3.6 mmol/L (3.5-5.1); Sodium 132 mmol/L (136-145)
[2019-05-02] MEDS: Spironolactone 25 MG TAB PO SCH (09:58)
[2019-05-02] MEDS: Metolazone 2.5 MG TAB PO SCH (09:59)
[2019-05-02] MEDS: Aspirin 81 mg Enteric Coated Tablet PO SCH (10:00)
[2019-05-02] MEDS: Famotidine 20 MG TAB PO SCH (10:00)
[2019-05-02] MEDS: Senokot S 8.6-50 MG TAB PO SCH ×2 (10:00→20:17)
[2019-05-02] MEDS: Ubidecarenone 50 MG CAP PO SCH (10:00)
[2019-05-02] MEDS: Polyethylene Glycol 3350 17 GM Packet PO SCH (10:01)
[2019-05-02] MEDS: Furosemide 40 MG TAB PO SCH (10:55)
[2019-05-02] MEDS: HumaLOG 300 UNITS/3 ML VIAL SC PRN ×2 (10:56→18:35)
--- NOTE | 2019-05-02 12:08 | PDOC.PN ---
- Subjective Encounter Start Date: 05/02/19 (f/u DM) Encounter Start Time: 12:06 Subjective: Pt sleepy today. RN reports he woke up/sat up for breakfast, then back -: to sleep. Family reports he had been declining at home over past 2-3 weeks -: No longer getting up/out of bed. - Objective Resuscitation Status - Order Detail: 04/26/19 17:23 Resuscitation Status Routine Resuscitation Status: PRTL: Cardiac only Discussed with: Confirmed with patient/family Additional comments: No intubation Vital Signs & Weight: Vital Signs (12 hours) Temp Pulse Resp BP Pulse Ox 05/02/19 08:46 98.1 F 60 20 126/61 100 05/02/19 04:00 98.2 F 59 L 20 143/76 H 100 Weight Admit Weight 190 lb 11.2 oz Weight 169 lb 6.4 oz Most Recent Monitor Data Heart Rate from ECG 48 NIBP 158/71 NIBP BP-Mean 100 Respiration from ECG 16 SpO2 99 I&O: 05/01/19 05/02/19 05/03/19 06:59 06:59 06:59 Intake Total 639 0 Output Total 350 Balance 289 0 Result Diagrams: 05/02/19 04:58 05/02/19 04:58 Additional Labs: Accuchecks 05/02/19 05/02/19 05/01/19 10:21 06:08 19:34 POC Glucose 264 H 235 H 243 H EKG Reviewed by me: Yes (tele - paced rhythm 60's) Phys Exam - Physical Examination Constitutional: NAD Respiratory: no wheezing, no rales, no rhonchi, clear to auscultation bilateral Cardiovascular: RRR, no significant murmur Gastrointestinal: soft, non-tender, no distention, positive bowel sounds Musculoskeletal: no edema, pulses present Deviation from normal: wakes to voice, answers questions, easily falls asleep Deviation from normal: ecchymosis around pacemaker pocket, incision intact Dx/Plan (1) Bradycardia Code(s): R00.1 - BRADYCARDIA, UNSPECIFIED Status: Resolved (2) Weakness Code(s): R53.1 - WEAKNESS Status: Chronic (3) Hyponatremia Code(s): E87.1 - HYPO-OSMOLALITY AND HYPONATREMIA Status: Acute (4) Congestive heart failure Code(s): I50.9 - HEART FAILURE, UNSPECIFIED Status: Chronic Qualifiers: Heart failure type: unspecified Heart failure chronicity: chronic Qualified Code(s): I50.9 - Heart failure, unspecified (5) Diabetes mellitus Code(s): E11.9 - TYPE 2 DIABETES MELLITUS WITHOUT COMPLICATIONS Status: Chronic Qualifiers: Diabetes mellitus type: type 2 Diabetes mellitus complication status: with kidney complications Chronic kidney disease stage: stage 4 (severe) (6) Elevated troponin Code(s): R74.8 - ABNORMAL LEVELS OF OTHER SERUM ENZYMES Status: Acute (7) CKD (chronic kidney disease) Code(s): N18.9 - CHRONIC KIDNEY DISEASE, UNSPECIFIED Status: Chronic Qualifiers: Chronic kidney disease stage: stage 4 (severe) Qualified Code(s): N18.4 - Chronic kidney disease, stage 4 (severe) (8) Atrial fibrillation Code(s): I48.91 - UNSPECIFIED ATRIAL FIBRILLATION Status: Chronic Qualifiers: Atrial fibrillation type: paroxysmal Qualified Code(s): I48.0 - Paroxysmal atrial fibrillation (9) Pressure ulcer Code(s): L89.90 - PRESSURE ULCER OF UNSPECIFIED SITE, UNSPECIFIED STAGE Status : Acute Qualifiers: Pressure injury location: sacral region Pressure injury stage: stage 2 Qualified Code(s): L89.152 - Pressure ulcer of sacral region, stage 2 - Plan * * Appreciate Cardiology consult - amiodarone and beta-tayo held, * s/p PPM yesterday with EP Cards * Renal function stable - continue current meds * DM - add home amaryl and continue SSI * hyponatremia stable -c/w SIADH * mildly elevated lft's on admission - stable - needs outpatient f/u with PCP * * dvt prophy - scd's * gi prophy - not indicated * code status cardiac only * * pt remains at high risk in current condition. * * Discussed condition and my concern of weakness with family - they agree and note decline prior to this admission. Discussed SNF as transition to home, to provide every opportunity for strength to improve now that pt has the pacemaker - they agree. CM to assist. Await arrangements of this and clearance from Cards for transfer. * Called by RN in the afternoon for c/o pt becoming stiff, closing his eyes, not responding. CT head ordered - negative, and Neurology consult placed.
--- NOTE | 2019-05-02 12:57 | RAD ---
PORTABLE CHEST: DATE: 05/02/2019. PROVIDED CLINICAL HISTORY: Post pacer placement. FINDINGS: Comparison 04/25/2019. Interval placement of left subclavian cardiac pacing device with lead tips over lying expected locations of RA, RV, and coronary sinus. No evidence for pneumothorax. The lungs are hypoinflated with bibasilar subsegmental atelectatic change. No evidence for pleural fluid. IMPRESSION: Post cardiac pacer device placement as above. POS: OFF
--- NOTE | 2019-05-02 14:03 | PRG ---
DATE OF SERVICE: 05/02/2019 SUBJECTIVE: Mr. Colbert is doing fair one day after his Bi-V ICD implant. He still has poor monility, but no new dyspnea or LOC. Vitals stable. He still has some significant fatigue and tiredness, is lying in the bed comfortably though. The ICD insertion site seems to be healing adequately. OBJECTIVE: VITAL SIGNS: Blood pressure is 126/61, heart rate is 60, respiratory rate is 20, temperature 98.1 degrees Fahrenheit. GENERAL: He is alert and oriented man, in no apparent distress. NECK: Supple. Jugular veins not distended. CHEST: Coarse without crackles. HEART: Heart sounds are regular to rate and rhythm. No murmur or gallop. ABDOMEN: Benign. Bowel sounds positive. EXTREMITIES: Lower extremity without edema, clubbing, or cyanosis. DATABASE: The telemetry strips reveals AV paced rhythm, rate of 60 beats per minute. LABORATORY DATA: White count is 14.7, hemoglobin is 16.5, platelet count is 263. Sodium 132, potassium 3.6, BUN is 94, creatinine is 3.25. The ICD interrogation was reviewed, revealing adequately functioning Bi-V ICD, the perimeter impedance is 475 in the atrium and RV, 1064 ohms in the LV. Capture thresholds are adequate RA and RV thershold are 0.5 V at 0.4 msec LV threshold is 1.25 V at 0.5 msec respectively. ASSESSMENT AND PLAN: Mr. Colbert is a pleasant 84-year-old man with prior history of congestive heart failure, chronic ischemic cardiomyopathy, who presented with severe bradycardia, continued to have generalized fatigue, difficult to get out of the bed with his marked bradycardia. He is not improving if holding his beta-tayo and amiodarone medication. Hence the pacing indication, he underwent Bi-V ICD implant in order to avoid future reoperation for defibrillator implant despite the usual 90-day post stent implantation waiting period. At this point, he seems to be doing fairone day post implant for now. I would continue monitoring for recurrence of atrial and ventricular arrhythmias. He might be able to restart his beta- tayo therapy as per Dr. Bautista. If further atrial arrhythmias seen, anticoagulation options and possibly resuming amiodarone could be considered. We will follow his ICD function. Thank you again for letting me to participate in the care of this patient. Job ID: [id number] [facility]
--- NOTE | 2019-05-02 14:03 | CON ---
DATE OF CONSULTATION: 05/01/2019 HISTORY OF PRESENT ILLNESS: I am seeing Mr. 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 His problems are; 1. Acute on chronic systolic congestive heart failure with ischemic cardiomyopathy. a. Recent history of the coronary arteries stenting as per the patient at [facility] by Dr. Briseno. b. Worsening LVEF, most recently 20% to 25% on echocardiogram on 04/28/2019. 2. Presentation marked bradycardia in the setting of amiodarone and beta tayo use. 3. Left bundle branch block. 4. Possible history of atrial fibrillation on chronic amiodarone for suppression. 5. Chronic renal insufficiency. 6. Remote history of coronary artery bypass grafting surgery. 7. Poorly controlled diabetes. ALLERGIES: NONE NOTED. MEDICATIONS: At home included; 1. Glimepiride. 2. Carvedilol 3.125 mg twice a day. 3. Amiodarone 400 mg daily. 4. Ubidecarenone. 5. Ranitidine. 6. Lipitor 40 mg daily. 7. Metolazone 2.5 mg daily. 8. Furosemide 40 mg daily. 9. Aspirin 81 mg daily. 10. Spironolactone 50 mg daily. SUBJECTIVE: Mr. Colbert was presented on April 26 with episodes of very low heart beatings in the 30s. Filemon has no history of dizziness or loss of consciousness. No fever, chills, or cough, although the patient has been progressively weaker, who was monitored in hospital for resolution of bradycardia while holding amiodarone and beta-blockers. He was unable to get out of the bed and has continued generalized weakness or still continued to be extremely bradycardic. His echocardiogram came back with LVEF in 20% to 25%. I was consulted for further management, consideration of Bi-V pacing. Rest of 12-point system otherwise unremarkable. PAST MEDICAL HISTORY: As above. History of recent hospitalization at [facility] in the end of March, who presented there with progressive swelling, dyspnea, CHF like symptoms, and BNP was 3571. He was also seen in January 2019 there, at which point, acute heart failure exacerbation was noted. LVEF at that time was in the 20% to 25%. He did undergo a left heart catheterization on February 15 and 2-vessel coronary artery disease was found with patent QUILES to LAD, SVG to PDA had a 70% proximal lesion due to one was patent. Stenting of a vessel was performed as well. 2D echo results from February 09, 2019, reveals LVEF severely reduced in the 23% range. [id number] aortic stenosis is also noted. EKG do reveal frequent PACs at times. SOCIAL HISTORY: The patient denies smoking, EtOH, or drug abuse. Used to smoke, quit about 10 years ago after 50 pack per year smoking. FAMILY HISTORY: Not contributory. PHYSICAL EXAMINATION: VITAL SIGNS: Blood pressure is 150/71, heart rate 49, respiratory rate 18, and temperature 97.5 degrees Fahrenheit. GENERAL: Alert and oriented man, in no apparent distress. NECK: Supple. Jugular veins slightly distended. CHEST: Coarse without crackles. HEART: Sounds are regular, but bradycardic. No murmur or gallop. ABDOMEN: Benign. Bowel sounds positive. EXTREMITIES: Lower extremities without edema, clubbing, or cyanosis. Pulses are adequate. NEUROLOGIC: The patient is nonfocal. MUSCULOSKELETAL: No joint swelling or deformities. SKIN: Without rash. DATABASE: The EKG is reviewed revealing marked sinus bradycardia, rate of 42 beats per minute initially, left bundle branch block pattern is noted. Subsequent EKGs reveal continued sinus bradycardia, left bundle branch block pattern. LABORATORY DATA: White cell count 9.9, hemoglobin 15.2, and platelet count is 245 on 04/29/2019. The sodium 129, potassium 3.9, BUN is 89, and creatinine 3.09 this morning. INR is 1.1. Initial troponins on admission were 0.06, 0.07, and 0.09. ASSESSMENT AND PLAN: 1. Mr. Colbert is an 84-year-old man, who has a history of chronic systolic congestive heart failure. Left ventricular ejection fraction is reduced for last 3 months with previous left ventricular ejection fraction 40% to 45% in the distant past reduced to 25% on echo in January. He did undergo left heart catheterization and stenting, although likely that is unlikely to improve his left ventricular ejection fraction long-term. Now, he re-presented again with the chronic congestive heart failure and mild bradycardia and extreme fatigue. Left ventricular ejection fraction again severely reduced, although he had recent revascularization of the marked bradycardia and left bundle branch block pattern and continued congestive heart failure as witnessed by his congestive heart failure would make him benefit from a biventricular pacing. We discussed the differences between biventricular pacing and implantable cardioverter-defibrillator implant. Hence, the indication for biventricular pacing. Hence, the sinus node using left bundle branch block pattern and severe left ventricular ejection fraction. At this point, I would opt for implanting a biventricular implantable cardioverter-defibrillator device to avoid the reoperation in the future. I detailed the differences between the biventricular pacemaker and implantable cardioverter-defibrillator and also the reduced benefit from implantable cardioverter-defibrillator, primary prophylaxis of sudden cardiac , hence his advanced age. Nevertheless, he prefers the biventricular implantable cardioverter-defibrillator over biventricular pacemaker implantation. 2. Marked bradycardia, likely it is sinus, though this is in combination with beta-tayo and amiodarone use. He will likely require these medication in the future for arrhythmia suppression. Hence, pacing is highly warranted. 3. Long-term even ablation is also potential option if atrial fibrillation is again seen. Risks, benefits, and alternatives to the procedure was discussed with him and the family. They understand and willing to proceed. We will schedule him for near date. Thank you again for allowing me to participate in the care of this patient. Job ID: [id number]
--- NOTE | 2019-05-02 14:58 | CT ---
NONCONTRAST HEAD CT: Date: 05/02/19 HISTORY: Change in mental status. COMPARISON: None. FINDINGS: No parenchymal hemorrhage. No extra-axial hematoma. No midline shift. Basilar cisterns are patent. Br ain volume, age-appropriate. Cortical rodriguez-white matter differentiation preserved. No evidence of hyd rocephalus. White matter hypodensities due to chronic small vessel ischemic change. Calvarium is inta ct. Minimal opacification of the left ethmoid air cells. IMPRESSION: No acute intracranial process. POS: OFF
--- NOTE | 2019-05-02 15:16 | PDOC.CTH ---
Cardiology Progress Note - Subjective No new issues. Some soreness around icd site. - Objective Vital Signs Temp Pulse Pulse Pulse Resp BP BP 05/02/19 13:40 71 76 131/75 133/76 05/02/19 12:45 97.4 F L 60 18 05/02/19 08:46 98.1 F 60 20 05/02/19 04:00 98.2 F 59 L 20 BP Pulse Ox 05/02/19 13:40 05/02/19 12:45 136/68 98 05/02/19 08:46 126/61 100 05/02/19 04:00 143/76 H 100 Admit Weight 190 lb 11.2 oz Weight 169 lb 6.4 oz 05/01/19 05/02/19 05/03/19 06:59 06:59 06:59 Intake Total 639 0 Output Total 350 Balance 289 0 - Physical Examination General/Neuro: NAD Neck: no JVD present Lungs: CTA, unlabored respirations Heart: RRR Abdomen: NT/ND Extremities: other: (no edema) - Telemetry Telemetry Rhythm: AV paced. HR 60 - Labs Result Diagrams: 05/02/19 04:58 05/02/19 04:58 Troponin/CKMB CK-MB (CK-2) 2.4 ng/mL (0-6.6) 04/25/19 21:18 Troponin I 0.090 ng/mL (< 0.028) H 04/26/19 04:50 - Assessment/Plan 1. Sinus bradycardia 2. Hyponatremia 3. Paroxysmal afib 4. 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 Severe LV dysfunction, EF at 20-25% 7. LBBB 8. S/P BiV AICD. PLAN: - No arrhythmias seen. - He seems very weakand even though he follows commands his eyes are closed all the time. Fmaily states he has been declinign slowly in the last few months. - Likely will need placement to SNF.
--- NOTE | 2019-05-02 17:58 | CON ---
DATE OF CONSULTATION: 05/02/2019 CONSULTING PHYSICIAN: Hospitalist Service. IMPRESSION: 1. Probable orthostatic hypotension. 2. Recent documented bradycardia with subsequent AICD implant. PLAN: The patient will need to be moved to a halfway facility to have rehab to try to rebuild strength and monitor blood pressure variability. Midodrine could be added if necessary. HISTORY OF PRESENT ILLNESS: Mr. Colbert is an 84-year-old gentleman, who has been having frequent falls. He reports that he feels lightheaded before he has fallen. His is unable to get him up. They have had to call EMS on several occasions to pick him up. He was documented to have a pulse rate between 30 and 40. He had an AICD implanted yesterday, they tried to stand him up in the ICU and he collapsed. He had a similar episode when physical therapy tried to get him to stand up today. He collapsed to the bed and had some few brief jerking movements. Otherwise, he has been in renal failure for a number of months. PAST MEDICAL HISTORY: Diabetes, CHF, chronic renal insufficiency, coronary artery disease. PAST SURGICAL HISTORY: CABG. Pacemaker implantation. ALLERGIES: PER CHART. SOCIAL HISTORY: No tobacco or alcohol. He is living at home with his . FAMILY HISTORY: Noncontributory. REVIEW OF SYSTEMS: Ten-system review of systems is otherwise unremarkable. PHYSICAL EXAMINATION: GENERAL: He is an elderly gentleman lying in bed, in no apparent distress. HEENT: His right cornea is a bit opaque. The left pupil is reactive. Conjunctivae are clear. Oropharynx is clear. He is without dentition. NECK: Supple. No lymphadenopathy. EXTREMITIES: No edema or cyanosis. NEUROLOGIC: He is alert and cooperative. For the most part, his speech is fluent and clear. Cranial nerves are intact. Motor exam showed antigravity strength in all 4 extremities. Sensation is intact to touch. He has mild asterixis on postural extension. Gait is not attempted. LABORATORY STUDIES: Only notable for a BUN of 94 and creatinine of 3.25. 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 He may need medication to address this, but given that he has become so weak with his hospitalization, it is going to be hard to make adjustments until he is able to be upright. Job ID: [id number]
[2019-05-02] MEDS: Atorvastatin Calcium 40 MG TAB PO SCH (20:17)
[2019-05-02] MEDS ORDERED: HumaLOG 300 UNITS/3 ML VIAL SC SCH (22:15)
[2019-05-03 05:54] LABS: #Basophils 0.1 thou/uL (0.0-0.2); #Eosinphils 0.1 thou/uL (0.0-0.7); #Lymphocytes 1.3 thou/uL (1.20-3.40); #Monocytes 1.8 thou/uL (0.11-0.59); #Neutrophils 9.6 thou/uL (1.40-6.50); %Basophils 0.5 % (0.0-1.0); %Eosinophils 0.8 % (0.0-10.0); %Lymphocytes 10.3 % (21.0-51.0); %Monocytes 13.8 % (0.0-10.0); %Neutrophils 74.7 % (42.0-75.0); Hemoglobin 16.1 g/dL (14.0-18.0); Mean Corpuscular HGB CONC 32.7 g/dL (32.0-36.0); Mean Corpuscular Hemoglobin 29.8 pg (27.0-31.0); Mean Corpuscular Volume 91.2 fL (78.0-98.0); Mean Platelet Volume 8.8 fL (7.4-10.4); Platelet Count 229 thou/uL (130-400); RBC Distribution Width 18.2 % (11.5-14.5); Red Blood Cell (RBC) Count 5.42 mill/uL (4.70-6.10); White Blood Cell (WBC) Count 12.8 thou/uL (4.8-10.8)
[2019-05-03 06:03] LABS: Anion Gap 23 mmol/L (10-20); BUN (Urea Nitrogen) 118 mg/dL (8.4-25.7); Calc. Creatinine Clearance 15 mL/min (70-130); Calcium 9.8 mg/dL (7.8-10.44); Carbon Dioxide 25 mmol/L (23-31); Chloride 90 mmol/L (98-107); Estimated GFR-MDRD 14; Glucose 181 mg/dL (83-110); Potassium 3.7 mmol/L (3.5-5.1); Sodium 134 mmol/L (136-145)
--- NOTE | 2019-05-03 08:26 | PDOC.PN ---
- Subjective Encounter Start Date: 05/03/19 (f/u DM) Encounter Start Time: 08:25 Subjective: No reported overnight events. pt c/o pain in left chest/shoulder -: where device is located. events yesterday of becoming stiff, jerking - -: neg head CT and Neuro consult. - Objective Resuscitation Status - Order Detail: 04/26/19 17:23 Resuscitation Status Routine Resuscitation Status: PRTL: Cardiac only Discussed with: Confirmed with patient/family Additional comments: No intubation Vital Signs & Weight: Vital Signs (12 hours) Temp Pulse Resp BP BP Pulse Ox 05/03/19 08:00 97.4 F L 60 18 153/71 H 93 L 05/03/19 04:00 97.9 F 62 16 134/58 L 97 Weight Admit Weight 190 lb 11.2 oz Weight 174 lb 3 oz Most Recent Monitor Data Heart Rate from ECG 48 NIBP 158/71 NIBP BP-Mean 100 Respiration from ECG 16 SpO2 99 I&O: 05/02/19 05/03/19 05/04/19 06:59 06:59 06:59 Intake Total 0 895 Balance 0 895 Result Diagrams: 05/03/19 05:36 05/03/19 05:36 Additional Labs: Accuchecks 05/03/19 05/02/19 05/02/19 05:13 20:42 16:46 POC Glucose 181 H 374 H 261 H 05/02/19 10:21 POC Glucose 264 H EKG Reviewed by me: Yes (av paced rate of 60) Phys Exam - Physical Examination Constitutional: NAD Respiratory: no wheezing, no rales, no rhonchi Cardiovascular: RRR, no significant murmur Gastrointestinal: soft, non-tender, no distention, positive bowel sounds Musculoskeletal: no edema Deviation from normal: ecchymosis around pacemaker insertion site Dx/Plan (1) Bradycardia Code(s): R00.1 - BRADYCARDIA, UNSPECIFIED Status: Resolved (2) Weakness Code(s): R53.1 - WEAKNESS Status: Chronic (3) Hyponatremia Code(s): E87.1 - HYPO-OSMOLALITY AND HYPONATREMIA Status: Acute (4) Congestive heart failure Code(s): I50.9 - HEART FAILURE, UNSPECIFIED Status: Chronic Qualifiers: Heart failure type: unspecified Heart failure chronicity: chronic Qualified Code(s): I50.9 - Heart failure, unspecified (5) Diabetes mellitus Code(s): E11.9 - TYPE 2 DIABETES MELLITUS WITHOUT COMPLICATIONS Status: Chronic Qualifiers: Diabetes mellitus type: type 2 Diabetes mellitus complication status: with kidney complications Chronic kidney disease stage: stage 4 (severe) (6) Elevated troponin Code(s): R74.8 - ABNORMAL LEVELS OF OTHER SERUM ENZYMES Status: Acute (7) CKD (chronic kidney disease) Code(s): N18.9 - CHRONIC KIDNEY DISEASE, UNSPECIFIED Status: Chronic Qualifiers: Chronic kidney disease stage: stage 4 (severe) Qualified Code(s): N18.4 - Chronic kidney disease, stage 4 (severe) (8) Atrial fibrillation Code(s): I48.91 - UNSPECIFIED ATRIAL FIBRILLATION Status: Chronic Qualifiers: Atrial fibrillation type: paroxysmal Qualified Code(s): I48.0 - Paroxysmal atrial fibrillation (9) Pressure ulcer Code(s): L89.90 - PRESSURE ULCER OF UNSPECIFIED SITE, UNSPECIFIED STAGE Status : Acute Qualifiers: Pressure injury location: sacral region Pressure injury stage: stage 2 Qualified Code(s): L89.152 - Pressure ulcer of sacral region, stage 2 - Plan * * Appreciate Cardiology consult - amiodarone and beta-tayo held, * s/p PPM 2 days ago * Renal function worse - likely pre-renal from poor PO intake. Discussed with family and pt has refused dialysis in the past * IVF as pt appears hypovolemic * hold spironolactone and furoemide * UA * Renal US * nephrology consult to optimize renal function * Appreciate Neuro consult - likely orthostatic hypotension. Reviewed CT and negative. * DM - continue current meds * hyponatremia stable -c/w SIADH * mildly elevated lft's on admission - stable - needs outpatient f/u with PCP * * dvt prophy - scd's * gi prophy - not indicated * code status cardiac only * * pt remains at high risk in current condition. * * When renal function optimized, plan for SNF, hopefully in 1-2 days.
[2019-05-03] MEDS ORDERED: Sodium Chloride 0.9% 1,000 ML IV SCH ×2 (08:30→10:41)
[2019-05-03] MEDS: Acetaminophen 325 MG TAB PO PRN (10:11)
[2019-05-03] MEDS: Famotidine 20 MG TAB PO SCH (10:12)
[2019-05-03] MEDS: Ubidecarenone 50 MG CAP PO SCH (10:12)
[2019-05-03] MEDS: Glimepiride 4 MG TAB PO SCH (10:12)
[2019-05-03] MEDS: Senokot S 8.6-50 MG TAB PO SCH ×2 (10:12→21:19)
[2019-05-03] MEDS: Aspirin 81 mg Enteric Coated Tablet PO SCH (10:12)
[2019-05-03] MEDS: Polyethylene Glycol 3350 17 GM Packet PO SCH (10:13)
[2019-05-03 10:33] LABS: Bilirubin Negative (Negative); Blood, Urine Moderate (Negative); Clarity CLEAR (Clear); Glucose, Urine (Dipstick) Negative (Negative); Leukocyte Negative (Negative); Nitrite Negative (Negative); Protein, Urine (Dipstick) Negative (Neg-Trace); Specific Gravity, Urine 1.019 (1.002-1.036); Urobilinogen 0.2 mg/dL (0.2-1.0)
[2019-05-03 10:39] LABS: Bacteria/HPF None Seen HPF (None Seen); Pathc Cast-AUWi Flag 2.17 (0-2.49); Squamous Epithelial 0-3 HPF (0-3); WBC/HPF 0-3 HPF (0-3)
[2019-05-03 10:52] LABS: Hyaline Casts/LPF 0-3 HYALINE CAST LPF (0-3 Hyaline)
--- NOTE | 2019-05-03 11:18 | ULT ---
Renal sonogram HISTORY: Acute renal insufficiency. FINDINGS: The right kidney is 9.0 cm in the left is 8.9 cm. Mild diffuse cortical atrophy. No hydrone phrosis or mass apparent. Urinary bladder is decompressed. IMPRESSION: No evidence of urinary tract obstruction. Symmetric diffuse renal atrophy.
--- NOTE | 2019-05-03 11:43 | RAD ---
AP VIEW CHEST: HISTORY: Congestive heart failure and crackles. AP view chest is obtained on 05/03/2019. Comparison made to previous exam from 05/02/2019. FINDINGS: Cardiomegaly seen. Sternotomy wires seen. A dual-lead intracardiac defibrillator is in place. Pulmonary vascular congestion seen. Areas of scarring or atelectasis present in the left lung base. No evidence of acute intrathoracic abnormality seen. IMPRESSION: Cardiomegaly and left lower lobe atelectasis or scar. Transcribed Date/Time: 05/03/2019 11:45 AM
[2019-05-03 12:22] LABS: Creatinine, Urine 94.08 mg/dL (63-166)
--- NOTE | 2019-05-03 12:24 | CON ---
DATE OF CONSULTATION: 05/03/2019 CONSULTING PHYSICIAN: Whitney Baird MD REASON FOR CONSULTATION: ELPIDIO on CKD. 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 The patient was evaluated by Cardiology and subsequently had biventricular ICD placement on May 01. Creatinine on presentation was 3.58 with BUN of 81. BUN and creatinine have been stable since admission, but started trending up a day after ICD placement from a mary anne of 3.09 to 4.09 today , hence Nephrology consult. Since admission, the patient has been on diuretic therapy for congestive heart failure. Review of medical record from [facility] showed the patient had known CKD stage 4. It was reported that creatinine of late has been trending up. He was admitted at [facility] in January 2019 for acute encephalopathy and found to have NSTEMI, for which he had percutaneous intervention, following which he developed acute kidney injury, which was thought to be contrast-induced nephropathy with creatinine going up to a peak of 4.25. RAAS blockers, diuretics were discontinued while he was treated with IV fluid with creatinine down to 3.9 before discharge. Followup renal function on April 19 showed creatinine of 3.58 with BUN of 84. Hospital course was complicated by development of generalized weakness, orthostatic weakness, shakiness, and tremors, for which he has been seen by Physical Therapy. History is grossly limited due to dysarthria and mental status change in the part of the patient. Most of the history was obtained by review of medical record. PAST MEDICAL HISTORY: 1. Chronic congestive heart failure. 2. COPD. 3. Coronary artery disease, status post CABG as well as recent percutaneous intervention. 4. Chronic kidney disease stage 4/5. 5. Uncontrolled diabetes mellitus. 6. Gastroesophageal reflux disease. 7. Hyperlipidemia. 8. Hypertension. 9. Left bundle-branch block. 10. Squamous cell cancer of the lip. 11. Abdominal aortic aneurysm, status post repair. 12. History of atrial fibrillation. 13. Ischemic cardiomyopathy with EF of 20% to 25%. PAST SURGICAL HISTORY: 1. Abdominal aortic aneurysm repair. 2. Cataract surgery. 3. Coronary artery bypass graft. 4. Lumbar laminectomy. 5. Lip surgery. FAMILY HISTORY: Significant for diabetes in father, sister, and brother. SOCIAL HISTORY: The patient lives with his spouse. He is a former smoker, who quit around 2011. Denied alcohol or recreational drug use. ALLERGIES: NO KNOWN DRUG ALLERGIES REPORTED. MEDICATIONS: Prior to hospital medications; 1. Amiodarone 400 mg p.o. daily. 2. Aspirin 81 mg p.o. daily. 3. Lipitor 40 mg p.o. daily. 4. Coreg 3.125 mg p.o. b.i.d. 5. Lasix 40 mg p.o. daily. 6. Glimepiride 4 mg p.o. daily. 7. Metolazone 2.5 mg p.o. daily. 8. Ranitidine 150 mg p.o. daily. 9. Spironolactone 50 mg p.o. daily. 10. CoQ10 of 100 mg p.o. daily. Current hospital medications; 1. Aspirin 81 mg p.o. daily. 2. Lipitor 40 mg p.o. daily at bedtime. 3. Pepcid 20 mg p.o. daily. 4. Glimepiride 4 mg p.o. daily. 5. MiraLAX 17 g p.o. daily. 6. Sennoside-docusate one tablet p.o. b.i.d. 7. CoQ10 of 100 mg p.o. daily. 8. Acetaminophen 650 mg q.4 p.r.n. for pain. 9. Zofran p.r.n. for nausea and vomiting. 10. Humalog was discontinued due to hypoglycemia. 11. Furosemide 40 mg daily, metolazone 2.5 mg daily, and spironolactone 50 mg daily were discontinued since this morning. REVIEW OF SYSTEMS: This could not be performed due to the patient's factors. However, the patient denied chest pain or respiratory distress. PHYSICAL EXAMINATION: VITAL SIGNS: Temperature 97.4, pulse 60, respiratory rate 18, SpO2 of 93% on room air, and blood pressure is 153/71 on lying down. GENERAL: Elderly male, in no obvious distress. Afebrile. Anicteric. Acyanotic. The patient is fatigued. HEENT: Normocephalic and atraumatic. Right pupil is irregular, but at least 5 mm. Left pupil is irregular and about 2 mm, both are nonreacting to light. The patient is edentulous. NECK: Supple with no obvious masses or JVD. CARDIOVASCULAR: Regular rhythm and rate. RESPIRATORY: Fair air entry with coarse breath sounds, query crackles, or transmitted sounds on the left side. Left upper chest AICD with surgical wound and some erythema noted. GI: Full, soft, nontender, nondistended with normal bowel sounds. EXTREMITIES: Grossly normal looking, atraumatic with no obvious edema, erythema , or cyanosis. NEUROLOGIC: Conscious and awake, oriented to person at least. Dysarthria, limited conversation. The patient also is hard of hearing. Involuntary movement of the limbs, especially upper limbs noted, worse with intention. Tremor with some jerky movements consistent with myoclonus noted. DIAGNOSTIC DATA: CBC today showed WBC count of 12.8, hemoglobin of 16, MCV of 91.2, platelet of 229. BMP showed sodium of 134, potassium 3.7, chloride 90, CO2 of 25, anion gap 23, BUN 118, creatinine 4.09, estimated GFR is 14, glucose is 181, calcium 9.8. Urinalysis performed on April 27 showed clear urine with pH of 7, specific gravity of 1.013, trace protein, positive glucose with negative ketones, blood, nitrite, bilirubin, and leukocyte esterase. ASSESSMENT: 1. Acute kidney injury superimposed on chronic kidney disease stage 4/5. Etiology is contrast-induced nephropathy with or without contribution from prerenal etiology related to hemodynamic factors due to diuretic therapy and poor oral intake. The patient is approaching end-stage renal disease. 2. Chronic kidney disease stage 4/5. Most likely due to diabetic nephropathy. Nearing end stage. 4. Hyponatremia: Present on presentation. Improved from 128 to 134. Most likely related to volume contraction with appropriate ADH. 5. Metabolic acidosis, improved. 6. Orthostatic weakness, most likely due to physical deconditioning and possible orthostatic hypotension. 7. Bradycardia with severe ischemic cardiomyopathy, status post biventricular ICD placement. 8. Ischemic cardiomyopathy with ejection fraction of 20% to 25%. 9. Chronic diastolic and systolic heart failure. 10. Physical deconditioning. PLAN: 1. Agree with holding off diuretic therapy as well as other nephrotoxic agents. 2. We will start gentle IV fluid therapy with normal saline and monitor the patient's given advanced congestive heart failure to avoid fluid overload. The patient also is having coarse breath sounds suggestive of possible congestion. We will get chest x-ray to assess fluid status and to rule out pulmonary congestion prior to IV fluid therapy. 3. We will also get urinalysis as well as urine electrolytes. 4. Get orthostatic vitals and start midodrine if he is orthostatic. If this is COLTON as i suspect, creatinine with worsen further and patient might need dialytic therapy. Review of medical record from [facility] showed that patient was open to dialytic therapy. I discussed dialytic therapy as well as conservative management with patient and spouse and later grand daughter Ladden, They all unanimously expressed that he does not want to be on dilaysis. We will observe patient with gentle hydration. Further recommendation to follow depending on hospital course. Many thanks for involving us in the care or this patient. Job ID: [id number] [email or web address]
[2019-05-03] MEDS: Sodium Chloride 0.9% 1,000 ML IV SCH ×2 (12:41→22:35)
[2019-05-03] MEDS: HumaLOG 300 UNITS/3 ML VIAL SC PRN ×2 (13:05→17:23)
[2019-05-03 13:09] VITALS: BMI 25.7
--- NOTE | 2019-05-03 13:42 | PDOC.CTH ---
Cardiology Progress Note - Subjective EP PROGRESS NOTE: 05/03/19 Mr. Colbert is doing well two days after his Bi-V ICD implant. He still has some significant fatigue and tiredness, is lying in the bed comfortably though. The ICD insertion site seems to be healing adequately. - Objective Vital Signs Temp Pulse Resp BP BP BP BP 05/03/19 12:00 62 20 64/48 L 145/62 H 05/03/19 11:47 64/48 L 05/03/19 08:00 97.4 F L 60 18 153/71 H 05/03/19 04:00 97.9 F 62 16 134/58 L Pulse Ox 05/03/19 12:00 05/03/19 11:47 05/03/19 08:00 93 L 05/03/19 04:00 97 Admit Weight 190 lb 11.2 oz Weight 174 lb 3 oz 05/02/19 05/03/19 05/04/19 06:59 06:59 06:59 Intake Total 0 895 Balance 0 895 - Physical Examination General/Neuro: alert & oriented x3, NAD Neck: carotid US brisk, no JVD present Lungs: CTA, unlabored respirations Heart: PMI normal, RRR Abdomen: NT/ND, soft Other PE findings: ICD implant CDi, no hematoma - Telemetry Telemetry Rhythm: SR, AV paced - Labs Result Diagrams: 05/03/19 05:36 05/04/19 04:35 Troponin/CKMB CK-MB (CK-2) 2.4 ng/mL (0-6.6) 04/25/19 21:18 Troponin I 0.090 ng/mL (< 0.028) H 04/26/19 04:50 - Assessment/Plan The ICD interrogation revealed adequately functioning Bi-V ICD, the perimeter impedance is 475 in the atrium and RV, 1064 ohms in the LV. Capture thresholds are adequate. ASSESSMENT AND PLAN: Mr. Colbert is a pleasant 84-year-old man with prior history of congestive heart failure, chronic ischemic cardiomyopathy, who presented with severe bradycardia, continued to have generalized fatigue, difficult to get out of the bed with his marked bradycardia. He had not improved with holding his beta-tayo and amiodarone medication. Hence the pacing indication, he underwent Bi-V ICD implant in order to avoid future reoperation for defibrillator implant, through these usual have a 90-day post stent implantation waiting period. At this point, he seems to be doing fair, but with continued limited mobility on the second day post implant for now. Renal function worsened. Agree with holding diuretecs. I would continue monitoring for recurrence of atrial and ventricular arrhythmias. He might be able to restart his beta-tayo therapy as per Dr. Bautista. If further atrial arrhythmias seen, anticoagulation options and possibly resuming amiodarone could be considered. We will follow his ICD function. Nephrology was consulted today regarding his rising creatinine. Continue post implant antibiotics.
[2019-05-03] MEDS: Midodrine HCl 5 MG TAB PO SCH ×2 (17:22→21:19)
[2019-05-03] MEDS: Cephalexin 250 MG CAP PO SCH (17:23)
--- NOTE | 2019-05-03 17:44 | PDOC.CTH ---
Cardiology Progress Note - Subjective No new issues. Small hematoma around ICD site. - Objective Vital Signs Temp Pulse Resp BP BP BP Pulse Ox 05/03/19 16:00 97.6 F 60 20 145/63 H 99 05/03/19 13:52 60 18 92 L 05/03/19 13:00 97.8 F 60 20 141/61 H 96 05/03/19 12:00 62 20 64/48 L 145/62 H 05/03/19 11:47 64/48 L 05/03/19 08:00 97.4 F L 60 18 153/71 H 93 L Admit Weight 190 lb 11.2 oz Weight 174 lb 3 oz 05/02/19 05/03/19 05/04/19 06:59 06:59 06:59 Intake Total 0 895 Balance 0 895 - Physical Examination General/Neuro: NAD Neck: no JVD present Lungs: CTA, unlabored respirations Heart: RRR Abdomen: NT/ND Extremities: + edema B (1+) - Telemetry Telemetry Rhythm: AV paced, - Labs Result Diagrams: 05/03/19 05:36 05/03/19 05:36 Troponin/CKMB CK-MB (CK-2) 2.4 ng/mL (0-6.6) 04/25/19 21:18 Troponin I 0.090 ng/mL (< 0.028) H 04/26/19 04:50 - Assessment/Plan 1. Sinus bradycardia 2. Hyponatremia 3. Paroxysmal afib 4. 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 Severe LV dysfunction, EF at 20-25% 7. LBBB 8. S/P BiV AICD. PLAN: - No more arrhythmias seen. - Placement. - Hematoma around ICD site resolved. - May discharge any time from cardiac perspective. . - Will sign off. - Follow up in 1 month in the office.
[2019-05-03] MEDS: Atorvastatin Calcium 40 MG TAB PO SCH (21:19)
[2019-05-04] MEDS: Cephalexin 250 MG CAP PO SCH ×5 (01:00→18:36)
[2019-05-04 05:48] LABS: Phosphorus 5.6 mg/dL (2.3-4.7)
[2019-05-04 05:49] LABS: Anion Gap 17 mmol/L (10-20); Calc. Creatinine Clearance 14 mL/min (70-130); Calcium 9.2 mg/dL (7.8-10.44); Carbon Dioxide 25 mmol/L (23-31); Chloride 94 mmol/L (98-107); Estimated GFR-MDRD 13; Glucose 318 mg/dL (83-110); Potassium 3.4 mmol/L (3.5-5.1); Sodium 133 mmol/L (136-145)
[2019-05-04 06:02] LABS: BUN (Urea Nitrogen) 126 mg/dL (8.4-25.7)
[2019-05-04] MEDS: Glimepiride 4 MG TAB PO SCH ×2 (08:14→12:06)
[2019-05-04] MEDS: Polyethylene Glycol 3350 17 GM Packet PO SCH ×2 (08:15→12:07)
[2019-05-04] MEDS: Sodium Chloride 0.9% 1,000 ML IV SCH ×2 (08:15→18:36)
[2019-05-04] MEDS: Senokot S 8.6-50 MG TAB PO SCH ×2 (08:15→12:08)
[2019-05-04] MEDS: Aspirin 81 mg Enteric Coated Tablet PO SCH ×2 (08:15→12:07)
[2019-05-04] MEDS: Famotidine 20 MG TAB PO SCH ×2 (08:15→12:07)
[2019-05-04] MEDS: Midodrine HCl 5 MG TAB PO SCH ×3 (08:15→16:45)
[2019-05-04] MEDS: Ubidecarenone 50 MG CAP PO SCH ×2 (08:15→12:08)
[2019-05-04] MEDS: HumaLOG 300 UNITS/3 ML VIAL SC PRN (08:17)
[2019-05-04 13:17] VITALS: TEMP 97.6
--- NOTE | 2019-05-04 13:32 | PDOC.PN ---
- Subjective Encounter Start Date: 05/04/19 (ELPIDIO with CKD) Encounter Start Time: 13:31 Subjective: Pt sleeping - will respond briefly to voice, then returns to sleep -: family state it has been this way all morning - Objective Resuscitation Status - Order Detail: 05/04/19 13:07 Resuscitation Status Routine Resuscitation Status: DNAR: NO Resuscitation Discussed with: family and palliative care Vital Signs & Weight: Vital Signs (12 hours) Temp Pulse Resp BP Pulse Ox 05/04/19 13:00 97.6 F 60 18 05/04/19 10:26 60 16 100 05/04/19 08:15 60 17 158/62 H 91 L 05/04/19 06:40 71 16 97 05/04/19 04:00 99 F 78 18 117/55 L 94 L Weight Admit Weight 190 lb 11.2 oz Weight 177 lb 2 oz Most Recent Monitor Data Heart Rate from ECG 48 NIBP 158/71 NIBP BP-Mean 100 Respiration from ECG 16 SpO2 99 I&O: 05/03/19 05/04/19 05/05/19 06:59 06:59 06:59 Intake Total 895 1780 Output Total 160 Balance 895 1620 Result Diagrams: 05/03/19 05:36 05/04/19 04:35 Additional Labs: Accuchecks 05/04/19 05/04/19 05/03/19 11:06 05:29 20:41 POC Glucose 267 H 302 H 278 H 05/03/19 16:58 POC Glucose 215 H EKG Reviewed by me: Yes (tele - paced rhythm 60-80's) Phys Exam - Physical Examination Constitutional: NAD Respiratory: no wheezing, no rales, no rhonchi Cardiovascular: RRR, no significant murmur Gastrointestinal: soft, no distention, positive bowel sounds Musculoskeletal: no edema Dx/Plan (1) Bradycardia Code(s): R00.1 - BRADYCARDIA, UNSPECIFIED Status: Resolved (2) Weakness Code(s): R53.1 - WEAKNESS Status: Chronic (3) Hyponatremia Code(s): E87.1 - HYPO-OSMOLALITY AND HYPONATREMIA Status: Acute (4) Congestive heart failure Code(s): I50.9 - HEART FAILURE, UNSPECIFIED Status: Chronic Qualifiers: Heart failure type: unspecified Heart failure chronicity: chronic Qualified Code(s): I50.9 - Heart failure, unspecified (5) Diabetes mellitus Code(s): E11.9 - TYPE 2 DIABETES MELLITUS WITHOUT COMPLICATIONS Status: Chronic Qualifiers: Diabetes mellitus type: type 2 Diabetes mellitus complication status: with kidney complications Chronic kidney disease stage: stage 4 (severe) (6) Elevated troponin Code(s): R74.8 - ABNORMAL LEVELS OF OTHER SERUM ENZYMES Status: Acute (7) CKD (chronic kidney disease) Code(s): N18.9 - CHRONIC KIDNEY DISEASE, UNSPECIFIED Status: Chronic Qualifiers: Chronic kidney disease stage: stage 4 (severe) Qualified Code(s): N18.4 - Chronic kidney disease, stage 4 (severe) (8) Atrial fibrillation Code(s): I48.91 - UNSPECIFIED ATRIAL FIBRILLATION Status: Chronic Qualifiers: Atrial fibrillation type: paroxysmal Qualified Code(s): I48.0 - Paroxysmal atrial fibrillation (9) Pressure ulcer Code(s): L89.90 - PRESSURE ULCER OF UNSPECIFIED SITE, UNSPECIFIED STAGE Status : Acute Qualifiers: Pressure injury location: sacral region Pressure injury stage: stage 2 Qualified Code(s): L89.152 - Pressure ulcer of sacral region, stage 2 - Plan * Family met with [facility] and decided on DNAR, considering a facility with hospice care. Discussed waiting to make the decision on when to transfer until eval by Dr. Mathias today - to see if renal function has been optimized and/or if there are other options for this. Pt and family do not desire dialysis * * Appreciate Cardiology consult - amiodarone and beta-tayo held, * s/p AICD 3 days ago * Renal function worse than baseline. d/w Dr. Mathias and IVF were increased without improvement. He will meet/discuss with family * DM - continue current meds, will not escalate as the goals of care are on quality of life * * hyponatremia stable -c/w SIADH * * dvt prophy - scd's * gi prophy - not indicated * code status - updated and now DNAR * * anticipate skilled facility with hospice care in the next 1-2 days based on renal function optimization.
--- NOTE | 2019-05-04 15:26 | PRG ---
DATE OF SERVICE: 05/04/2019 SUBJECTIVE: An 84-year-old male patient with known history of CKD, stage 4; hypertension; diabetes; and ischemic cardiomyopathy, who was admitted due to bradycardia. The patient is status post bivalve ICD placement. Nephrology is seeing the patient for acute kidney injury superimposed on CKD, stage 4. The patient is confused and somnolent, hence, was unable to provide any significant history. Oral intake has been minimal. OBJECTIVE: VITAL SIGNS: Temperature 97.6, pulse 60, respiratory rate 18, SpO2 of 97 on room air, blood pressure 158/62. GENERAL: Elderly male, sleeping, but arousable, in no obvious distress. Fatigued. Afebrile and anicteric. HEENT: Normocephalic and atraumatic. Pupils are irregular. The patient is edentulous. CARDIOVASCULAR: Regular rhythm and rate with normal heart sounds 1 and 2. CHEST/PULMONARY: Fair air entry bilaterally with some transmitted sounds. Left upper chest ICD noted with some pressure dressing. GI: Full, soft, nontender, and nondistended with normal bowel sounds. EXTREMITIES: Grossly normal looking, atraumatic with no obvious edema or erythema. NEUROLOGIC: The patient is sleeping/drowsy, but arousable. Decreased vision and hearing ability limited conversation and assessment. The patient, however, seems confused. He is oriented to person. Occasional tremor and involuntary movement of upper limbs plus tremors noted. ASSESSMENT: 1. Acute kidney injury on chronic kidney disease, 4: Most likely due to contrast-induced nephropathy. Despite IV fluid therapy for possible prerenal etiology, creatinine is still trending up. Creatinine today is 4.35 with BUN of 126. The patient clearly has features of uremia given involuntary movements/myoclonus and acute encephalopathy as well as excessive sleepiness. Care options including dialytic treatment and conservative care again were discussed with a broader panel of family members including 2 daughters, spouse, several grandchildren, and the patient. They all expressed that their father did not want to be on dialysis, and he would rather than to be put on dialysis. They at this time are inclined to proceeding with hospice care. 2. Acute encephalopathy: Most likely uremic in etiology. 3. Mild hypokalemia. 4. Bradycardia, status post biventricular implantable cardioverter-defibrillator placement. 5. Ischemic cardiomyopathy with ejection fraction 20 to 25. 6. Uncontrolled type 2 diabetes mellitus. PLAN: We will discontinue IV fluid therapy in the absence of any significant improvement in renal function with the risk of worsening pulmonary congestion and respiratory status. DIAGNOSTIC DATA: Renal function panel today showed sodium 133, potassium 3.4, chloride 94, CO2 of 25, anion gap 17, BUN 126, creatinine 4.35, glucose 318, calcium 9.2, phosphorus 5.6. PTH intact is 134.9. . Job ID: [id number]
--- NOTE | 2019-05-04 16:28 | PDOC.EVN ---
Event Note - Event Note Event Note: Informed by manager case that pt has been accepted at [facility] for inpatient. Discussed with Dr. Mathias earlier today who met with family - reports nothing more to do. Will request [employer] inactivate the AICD
[2019-05-04 16:44] VITALS: BP 148/66
--- NOTE | 2019-05-04 16:48 | PDOC.CTH ---
Cardiology Progress Note - Subjective EP PROGRESS NOTE: 05/04/19 Mr. Colbert is three days post his Bi-V ICD implant. He is minimally responsive today with AMS. Many family members bedside. - ROS not able to obtain ROS - Objective Vital Signs Temp Pulse Resp BP Pulse Ox 05/04/19 15:15 97.6 F 60 18 148/66 H 93 L 05/04/19 13:34 60 16 97 05/04/19 13:00 97.6 F 60 18 05/04/19 10:26 60 16 100 05/04/19 08:15 60 17 158/62 H 91 L 05/04/19 06:40 71 16 97 Admit Weight 190 lb 11.2 oz Weight 177 lb 2 oz 05/03/19 05/04/19 05/05/19 06:59 06:59 06:59 Intake Total 895 1780 Output Total 160 Balance 895 1620 - Physical Examination General/Neuro: NAD Neck: carotid US brisk, no JVD present Lungs: unlabored respirations Heart: PMI normal, RRR Abdomen: NT/ND, soft Other PE findings: ICD to left chest wall stable - Telemetry Telemetry Rhythm: AV paced. - Labs Result Diagrams: 05/03/19 05:36 05/04/19 04:35 Troponin/CKMB CK-MB (CK-2) 2.4 ng/mL (0-6.6) 04/25/19 21:18 Troponin I 0.090 ng/mL (< 0.028) H 04/26/19 04:50 - Assessment/Plan 1. 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 CMPY 3. A/C renal failure 4. LBBB -corrected with BiV ICD Device is functioning normally, rhythm is stable. Patient appears to be medically failing overall. EP signing off. If further input is needed, please do not hesitate to contact us.
--- NOTE | 2019-05-05 01:34 | DIS ---
DATE OF ADMISSION: 04/25/2019 DATE OF DISCHARGE: 05/04/2019 DISCHARGE DISPOSITION: [facility]. CONSULTANTS: 1. Dr. Richey of Pulmonology. 2. Dr. Goodman of Electrophysiology/Cardiology. 3. Dr. Mathias of Nephrology. 4. Dr. Bautista of Cardiology. 5. Dr. Gibson of Neurology. MEDICATIONS: Reconciled at discharge and are none, any medications needed will be provided by [facility]. FINAL DIAGNOSES: 1. Acute kidney injury in the context of chronic kidney disease, stage 4. 2. Bradycardia, status post automated implantable cardioverter-defibrillator placement. 3. Hyponatremia, consistent with SIADH. 4. Diabetes mellitus. 5. Systolic heart failure. 6. Ischemic cardiomyopathy. SECONDARY DIAGNOSES: 1. Paroxysmal atrial fibrillation. 2. Elevated liver function tests. 3. Sacral ulcer. HISTORY OF PRESENT ILLNESS: Mr. Colbert is an 84-year-old male with medical problems as noted above, who presented to the emergency room with a heart rate in the 30s. He had been amiodarone and carvedilol. However, had been off them for a few days because he ran out. For the bradycardia, he was admitted to the hospital. HOSPITAL COURSE: The patient was evaluated by Cardiology, Dr. Bautista with plan for holding the amiodarone and Coreg. He was monitored on telemetry and found to have a rate in the 40s and 50s. This did not change despite being off both medications. For that reason, Electrophysiology/Cardiology was consulted and patient underwent placement of an AICD due to acute on chronic systolic heart failure with ischemic cardiomyopathy and an EF of 20% to 25%. The patient tolerated that well. Three days ago, he did develop a hematoma around the pacemaker pocket that subsequently resolved. The patient has chronic kidney disease stage 4, which had been medically managed. The patient's renal function had been stable here up until two days ago, when his creatinine went from 3.25 up to 4.09. His diuretic therapy, spironolactone and metolazone were held at that time. His BUN had also increased. A renal ultrasound was obtained which did not show any obstruction. The patient was thought to be hypovolemic and started on IV fluids in consultation with Dr. Mathias of Nephrology. Even with IV fluids, his renal function has not changed. In discussion with Dr. Mathias today, he met with the family and the family desires hospice due to the multiple comorbidities, and patient's general quality of life. The patient had declined dialysis prior to this hospitalization. Two days ago, the patient noted to become stiff and have jerking movements with working with physical therapy. Because of this, he underwent a head CT which was negative for bleed, evaluation by Neurology, Dr. Gibson, who suspected orthostatic hypotension. The patient did have a significant drop in his blood pressure between sitting and supine, even with IV fluid initiation. Midodrine was ordered to assist with that. Despite the AICD placement, patient has continued to decline, including his generalized weakness, significant fatigue as well as worsening renal function. For this reason, Palliative Care met with the patient and family today. Code status was discussed and changed to DNR, do not attempt resuscitation. In addition, hospice evaluation was requested and patient has been accepted at [facility] hospice. The family reports that this is all in conjunction with the patient's wishes of no dialysis, and no life prolonging measures. [employer] was contacted with a request to turn off the AICD. Hyponatremia has been stable, blood sugars today have been in the 200s and 300s , and patient's LFTs have been mildly elevated. PHYSICAL EXAMINATION: Please see the note on the chart. JOY FINDINGS AND TEST RESULTS: His PTH intact 134.9. Basic metabolic panel; 133, 3.4, 94, 25, 126, 4.35, 318. LFTs; T bilirubin 1.2. AST was 61, ALT 84, alkaline phosphatase 80, total protein 8.1, albumin 4. Troponin on admission 0.06, 0.074, 0.09. CBC; 12.8, 16.1, 49.4, 229. Urinalysis showed moderate blood, 11 to 20 red blood cells, total protein 17, creatinine 94. Urine sodium 31, urea nitrogen 581. Urine osmolality 424. Chest x-ray on 05/03, cardiomegaly and left lower lobe atelectasis or scar. Renal ultrasound on 05/03; no evidence of urinary tract obstruction. Brain CT on 05/02; no acute intracranial process. Chest x-ray on 05/02; post cardiac pacer device placement. Echocardiogram on 04/30, EF of 20% to 25%, left ventricular size moderately increased, diastolic dysfunction. Chest x-ray on 04/25; shows postop midline sternotomy, borderline heart size. No significant acute intrathoracic disease. All care will be provided by [facility] to include diet and activity. Transfer is requested by the family. No questions or further needs at the time of dictation. Code status: DNAR Total time coordinating discharge is 45 minutes. Job ID: [id number] [id number]
== END 2019-05-04 20:27 | disposition hospice, inpatient (51) | DRG 226 ==
LOC: ERS 20:50 → IMCU/EMU 23:05 → 2SE 04-29 18:21 → 2NO 05-02 01:40
PROVIDERS: ADMIT Hospitalist; ATTEND Hospitalist
PROC: 0JH608Z Insertion of Defibrillator Generator into Chest Subcutaneous Tissue and Fascia, Open Approach (ICD-10-PCS; principal; 2019-05-01)
PROC: 02HL3KZ Insertion of Defibrillator Lead into Left Ventricle, Percutaneous Approach (ICD-10-PCS; 2019-05-01)
PROC: 02HK3KZ Insertion of Defibrillator Lead into Right Ventricle, Percutaneous Approach (ICD-10-PCS; 2019-05-01)
PROC: 02H63KZ Insertion of Defibrillator Lead into Right Atrium, Percutaneous Approach (ICD-10-PCS; 2019-05-01)
DX: R00.1 Bradycardia, unspecified (principal); I21.A1 Myocardial infarction type 2; I50.23 Acute on chronic systolic (congestive) heart failure; N17.9 Acute kidney failure, unspecified; I13.0 Hypertensive heart and chronic kidney disease with heart failure and stage 1 through stage 4 chronic kidney disease, or unspecified chronic kidney disease; E22.2 Syndrome of inappropriate secretion of antidiuretic hormone; E87.2 Acidosis; N18.4 Chronic kidney disease, stage 4 (severe); G93.49 Other encephalopathy; L76.32 Postprocedural hematoma of skin and subcutaneous tissue following other procedure; E87.3 Alkalosis; Z66 Do not resuscitate; E11.22 Type 2 diabetes mellitus with diabetic chronic kidney disease; T46.2X5A Adverse effect of other antidysrhythmic drugs, initial encounter; T44.7X5A Adverse effect of beta-adrenoreceptor antagonists, initial encounter; I44.7 Left bundle-branch block, unspecified; I25.10 Atherosclerotic heart disease of native coronary artery without angina pectoris; E78.5 Hyperlipidemia, unspecified; K21.9 Gastro-esophageal reflux disease without esophagitis; L89.152 Pressure ulcer of sacral region, stage 2; I25.5 Ischemic cardiomyopathy; I48.0 Paroxysmal atrial fibrillation; E11.65 Type 2 diabetes mellitus with hyperglycemia; E87.6 Hypokalemia; Y83.9 Surgical procedure, unspecified as the cause of abnormal reaction of the patient, or of later complication, without mention of misadventure at the time of the procedure; I95.1 Orthostatic hypotension; Z95.1 Presence of aortocoronary bypass graft; Z79.82 Long term (current) use of aspirin; Z79.84 Long term (current) use of oral hypoglycemic drugs; Z79.899 Other long term (current) drug therapy; I25.2 Old myocardial infarction; Z87.891 Personal history of nicotine dependence
CPT/HCPCS: 33225; 33230; 36005; 36415; 36416; 70450; 71045; 75820; 76770; 80048; 80053; 80069; 81003; 81015; 82553; 82570; 83735; 83935; 83970; 84100; 84156; 84300; 84484; 84540; 85025; 85610; 85730; 93005; 93306; 93641; 94640; 96372; 96374; C1777; C1882; C1898; C1900; J0461; J0690; J1650; J3490; J7620; Q9967